=== PATIENT | female | born 1950 | race Caucasian/White ===

== ENCOUNTER 2020-06-27 11:35 | Outpatient (CLI) | payer MEDICARE, SELFPAY ==
--- NOTE | 2020-06-27 11:42 | MM_ITS ---
WS: [id number] BILATERAL DIGITAL SCREENING MAMMOGRAPHY WITH CAD CLINICAL INFORMATION: SCREENING HISTORY: Screening mammogram. No current complaints. COMPARISON: None. TECHNIQUE: Bilateral CC and MLO views. FINDINGS: Scattered fibroglandular densities bilaterally. No suspicious focal mass, asymmetry, calcifications, or architectural distortion. No evidence of malignancy. Incidental benign calcification right breast. A few clustered punctate calcifications left breast. MM/[id number] IMPRESSION: BI-RADS: 2-Benign FOLLOW UP: 1 Year Follow-up Recommend return to annual screening mammography.
== END 2020-06-27 11:36 | disposition home or self-care (01) ==
PROVIDERS: PCP Physician Assistant; Visit Provider Physician Assistant
DX: Z12.31 Encounter for screening mammogram for malignant neoplasm of breast (principal)
CPT/HCPCS: 77067

== ENCOUNTER 2021-03-13 09:48 | Observation (INO) | payer MEDICARE, SELFPAY ==
[2021-03-13] VITALS (20 sets, daily range): BP systolic 106–131; BP diastolic 84–96; PULSE 66–162; RESP 14–32; TEMP 37.3; O2SAT 89–95; BMI 22.6
--- NOTE | 2021-03-13 10:29 | ED_ITS ---
Documented by User: ARGELIA Samson 03/13/21 16:31 HPI - COVID General: Chief Complaint: ER Hold Stated Complaint: SOB Time Seen by Provider: 03/13/21 10:23 Triage information: Has fever, cough or shortness of breath . Exposure to COVID + person last 14 days History of Present Illness: HPI Narrative: Patient complains Covid-like symptoms increasing shortness of breath she said her sats have gone into the 70s and 80s and 90s at home. She has felt this way since yesterday. Recently quit smoking 2 months ago. Has had a loss of taste and smell and does have body aches. Denies headache sore throat or fever. MD complaint: reported COVID exposure and has COVID symptoms Prior covid testing: no COVID 19 common symptoms: positive dyspnea, body aches and loss of sense of smell and/or taste; negative headache(s), throat pain, nasal congestion, nausea or vomiting COVID 19 other sytmptoms: negative chest pain Severity: mild Pertinent comorbid conditions: COPD/respiratory disease Treatment prior to arrival: none COVID Results: SARS-CoV-2 Antigen (Rapid) Negative (Negative) 03/13/21 11:10 03/13/21 SARS-CoV-2 (PCR) Not detected (NOT DETECT) 03/13/21 18:56 03/13/21 Coronavirus Type 229E (PCR) Not detected (NOT DETECT) 03/13/21 18:56 03/13/21 Review of Systems Const: Reports: body aches Eyes: Denies: change in vision or blurry vision ENMT: Denies: throat pain or nasal congestion Card: Denies: chest pain or dyspnea on exertion Resp: Reports: dyspnea GI: Denies: abdominal pain, nausea or vomiting Musc: Denies: extremity pain Skin/Breast: Denies: rash Neuro: Denies: headache(s) Psych: Denies: anxiety or depression Ismael/Lymph: Denies: easy bruising PFS ED PFSH: Medical History (Updated 03/15/21 @ 00:01 by ) Atrial flutter (~03/13/21) Atrial flutter with rapid ventricular response Chronic kidney disease, stage II (mild) follows with Dr. Gavin,, diagnosed based on urinary protein COVID-19 vaccine administered 2 primary doses mrna vaccine + booster shot x 1 4 para 4 History of smoking quit ~02/09/2021 Hypertension Surgical History (Updated 03/13/21 @ 22:11 by Maureen Dee MD) History of appendectomy History of cataract surgery History of hysterectomy Family History (Updated 03/13/21 @ 22:12 by Maureen Dee MD) Brother Heart disease details unknown Social History (Updated 03/13/21 @ 22:14 by Maureen Dee MD) Smoking and tobacco status: former smoker Quit status (tobacco): has quit using tobacco Year quit tobacco: 02/09/2021 Former quit date comment: after several attempts Alcohol intake: current Alcohol intake frequency: few times a month Current occupational status: other Details: 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 Physical Exam Const: COMMON NORMALS: no acute distress, average body habitus and patient o riented x3 HENMT: COMMON NORMALS: normocephalic HEAD & SCALP: normal to inspection and normocephalic FACE & SINUS: normal facial exam Eye: COMMON NORMALS: conjunctivae normal GENERAL EYE: appearance normal, both eyes and all related structures CONJUNCTIVA: Yes conjunctivae normal Neck/C-Spine: COMMON NORMALS: no JVD Chest: COMMONS NORMALS: normal inspection of the chest Resp: COMMON NORMALS: normal respiratory effort and clear to auscultation bilaterally AUSCULTATION: clear to auscultation bilaterally Cardio: COMMON NORMALS: no JVD RATE: tachycardic GI: COMMON NORMALS: Normal to inspection, nondistended, normoactive bowel sounds present Extremity: COMMON NORMALS: normal to inspection and full ROM Neuro: COMMON NORMALS: patient oriented x3 Course Vital Signs: Vital signs: Vital Signs Temperature 99.2 F 03/13/21 10:18 Pulse Rate 72 03/14/21 13:31 Respiratory Rate 17 03/14/21 13:31 Blood Pressure 135/81 03/14/21 04:40 Pulse Oximetry 94 03/14/21 13:31 MDM - COVID MDM Narrative: Medical decision making narrative: Brief history and physical exam was performed as part of the triage process. Due to current ED wait time patient will be placed in waiting room until a room becomes available. Explained to patient he/she will be seen in order of severity. Patient is currently safe to wait in the waiting room until we can get them placed. Patient informed that if condition worsens at any time to please let the senior front end developer know. Lab Data: Labs: Lab Results 03/13/21 03/13/21 03/13/21 11:10 13:44 13:44 WBC 10.9 10^3/uL H 10 ^3/uL (4.0-10.0) RBC 4.06 10^6/uL L 10 ^6/uL (4.1-5.3) Hgb 12.6 g/dL g/dL (11.5-15.3) Hct 40.3 % % (37.0-47.0) MCV 99.3 fl H fl (81-99) MCH 31.0 pg pg (28.0-34.0) MCHC 31.3 g/dL g/dL (30.0-36.0) RDW 13.3 % % (12.1-15.1) Plt Count 271 10^3/cmm 10^3 /cmm (130-400) MPV 9.1 fL fL (7.4-10.4) Neut % (Auto) 71.4 % % Lymph % (Auto) 17.8 % % [place] % (Auto) 8.9 % % Eos % (Auto) 0.7 % % Baso % (Auto) 0.7 % % Neut # (Auto) 7.81 10^3/uL H 10 ^3/uL (1.8-7.7) Lymph # (Auto) 2.0 10^3/uL 10^3/ uL (0.8-4.8) [place] # (Auto) 1.0 10^3/uL H 10^ 3/uL (0.2-0.9) Eos # (Auto) 0.1 10^3/uL 10^3/ uL (0.0-0.8) Baso # (Auto) 0.1 10^3/uL 10^3/ uL (0.0-0.1) Nucleated RBC % (a uto) 0.2 % % Nucleated RBCs # 0.0 /100WBC /100W BC PT 13.70 SECONDS SEC ONDS (12.1-14.9) INR 1.02 (0.8-1.2) Fibrinogen D-Dimer 2.52 ug/mIFEU H u g/mIFEU (0-0.59) Sodium Potassium Chloride Carbon Dioxide Anion Gap BUN Creatinine GFR Calculation Glucose Calculated Osmolal ity Calcium Magnesium Ferritin Total Bilirubin AST ALT Alkaline Phosphata se Lactate Dehydrogen ase Creatine Kinase Troponin T Baselin e Troponin T 120 Min [place] Troponin T C-Reactive Protein Total Protein Albumin Globulin Procalcitonin Coronavirus 229E ( PCR) SARS-CoV-2 (PCR) SARS-CoV-2 Ag (Rap id) Negative (Negative) 03/13/21 03/13/21 03/13/21 13:44 13:44 13:44 WBC RBC Hgb Hct MCV MCH MCHC RDW Plt Count MPV Neut % (Auto) Lymph % (Auto) [place] % (Auto) Eos % (Auto) Baso % (Auto) Neut # (Auto) Lymph # (Auto) [place] # (Auto) Eos # (Auto) Baso # (Auto) Nucleated RBC % (a uto) Nucleated RBCs # PT INR Fibrinogen 472 mg/dL mg/dL (174-498) D-Dimer Sodium 138 mmol/L mmol/L (136-145) Potassium 4.4 mmol/L mmol/L (3.5-5.1) Chloride 101 mmol/L mmol/L (98-107) Carbon Dioxide 25 mmol/L mmol/L (22-29) Anion Gap 16.4 (5-19) BUN 10 mg/dL mg/dL (8-23) Creatinine 0.6 mg/dL mg/dL (0.5-0.9) GFR Calculation 99.4 mL/min mL/mi n (90-130) Glucose 98 mg/dL mg/dL (65-115) Calculated Osmolal ity 285 mOsm/kg mOsm/ kg (285-295) Calcium 8.5 mg/dL mg/dL (8.5-10.5) Magnesium Ferritin Total Bilirubin 0.4 mg/dL mg/dL (0.15-1.2) AST 45 U/L H U/L (0-32) ALT 137 U/L H U/L (0-33) Alkaline Phosphata se 65 IU/L IU/L (35-105) Lactate Dehydrogen ase Creatine Kinase Troponin T Baselin e 17 ng/L H ng/L (0-10) Troponin T 120 Min [place] Troponin T C-Reactive Protein Total Protein 6.9 g/dL g/dL (6.6-8.7) Albumin 4.1 g/dL g/dL (3.5-5.2) Globulin 2.8 g/dL g/dL (1.3-4.6) Procalcitonin Coronavirus 229E ( PCR) SARS-CoV-2 (PCR) SARS-CoV-2 Ag (Rap id) 03/13/21 03/13/21 03/13/21 13:44 15:27 18:56 WBC RBC Hgb Hct MCV MCH MCHC RDW Plt Count MPV Neut % (Auto) Lymph % (Auto) [place] % (Auto) Eos % (Auto) Baso % (Auto) Neut # (Auto) Lymph # (Auto) [place] # (Auto) Eos # (Auto) Baso # (Auto) Nucleated RBC % (a uto) Nucleated RBCs # PT INR Fibrinogen D-Dimer Sodium Potassium Chloride Carbon Dioxide Anion Gap BUN Creatinine GFR Calculation Glucose Calculated Osmolal ity Calcium Magnesium 2.0 mg/dL mg/dL (1.7-2.3) Ferritin 304 ng/mL H ng/mL (15-150) Total Bilirubin AST ALT Alkaline Phosphata se Lactate Dehydrogen ase 234 U/L H U/L (135-214) Creatine Kinase 85 U/L U/L (26-192) Troponin T Baselin e Troponin T 120 Min [place] 16.77 ng/L H ng/L (0-10) Delta Troponin T -0.23 ABS# L ABS# (0-10) C-Reactive Protein 57.3 mg/L H mg/L (0.0-4.9) Total Protein Albumin Globulin Procalcitonin 0.07 ng/mL ng/mL (0-0.5) Coronavirus 229E ( PCR) Not detected (NOT DETECT) SARS-CoV-2 (PCR) Not detected (NOT DETECT) SARS-CoV-2 Ag (Rap id) COVID Results: SARS-CoV-2 Antigen (Rapid) Negative (Negative) 03/13/21 11:10 03/13/21 SARS-CoV-2 (PCR) Not detected (NOT DETECT) 03/13/21 18:56 03/13/21 Coronavirus Type 229E (PCR) Not detected (NOT DETECT) 03/13/21 18:56 03/13/21 Discharge Plan Discharge Patient Disposition: Placed in Observation Admit Provider: Maureen Dee Clinical Impression: New onset a-fib, Atrial fibrillation with rapid ventricular response Discharge Diet: Cardiac Discharge Activity: Increase activity as tolerated and Limit activity as instructed Sign Out Sign Out Data: Patient Sign Out occurred on 03/13/21 at 19:23. Patient's care was discussed, and care was transferred from to Isiah Toro MD. Post-Handoff Eval: Patient care handoff from Miguel Malagon NP. I personally saw the patient. I reviewed performed guerin portions of E/M. I reperformed HPI, ROS, physical exam. 10 point review of systems was negative except for as noted in HPI/previous performed ROS. GENERAL/CONSTITUTIONAL - well appearing. Patient is nontoxic in appearance. she does become mildly distressed with exertion as manifested by increased work of breathing. Comfortable at rest. Eyes - PERRL, no conjunctival injection ENMT - Atraumatic external nose and ears. Moist mucous membranes NECK - supple. trachea midline CARDIOVASCULAR -tachycardic rate and irregular rhythm. Normal peripheral perfusion RESPIRATORY -clear to auscultation bilaterally. Mild tachypnea ABDOMEN/GI - Nontender, Nondistended. MSK - Extremities without obvious deformity or tenderness to palpation SKIN - Warm, Dry NEURO - alert and appropriately oriented. Moves all extremities equally. Patient has two 1 week history of breathlessness though more definitively likely A. fib greater than 48 hours in duration given palpitations. Given this, and uncertain nature of onset without history of similar and no use of anticoagulation patient requires further inpatient management. For rate control I ordered Cardizem and Cardizem drip. Hospitalist service contacted and agreed to admit the patient. Coding Level of Care Code ED Maintenance Foreman for Chg Fwd Exam Comprehensive Documented by User: LIOR Do 03/13/21 21:50 HPI - COVID General: Chief Complaint: ER Hold Stated Complaint: SOB Time Seen by Provider: 03/13/21 10:23 History of Present Illness: HPI Narrative: Patient says she has been having shortness of breath now that started approximately 3 days ago and is continued. She reports feeling palpitations that started after she did some exercise. She says whenever she gets up and moves around her house she feels short of breath. COVID 19 other sytmptoms: negative chest pain COVID Results: SARS-CoV-2 Antigen (Rapid) Negative (Negative) 03/13/21 11:10 03/13/21 SARS-CoV-2 (PCR) Not detected (NOT DETECT) 03/13/21 18:56 03/13/21 Coronavirus Type 229E (PCR) Not detected (NOT DETECT) 03/13/21 18:56 03/13/21 Review of Systems Card: Reports: palpitations; Denies: chest pain [facility] ED PFSH: Medical History (Updated 03/15/21 @ 00:01 by ) Atrial flutter (~03/13/21) Atrial flutter with rapid ventricular response Chronic kidney disease, stage II (mild) follows with Dr. Gavin,, diagnosed based on urinary protein COVID-19 vaccine administered 2 primary doses mrna vaccine + booster shot x 1 4 para 4 History of smoking quit ~02/09/2021 Hypertension Surgical History (Updated 03/13/21 @ 22:11 by Maureen Dee MD) History of appendectomy History of cataract surgery History of hysterectomy Family History (Updated 03/13/21 @ 22:12 by Maureen Dee MD) Brother Heart disease details unknown Social History (Updated 03/13/21 @ 22:14 by Maureen Dee MD) Smoking and tobacco status: former smoker Quit status (tobacco): has quit using tobacco Year quit tobacco: 02/09/2021 Former quit date comment: after several attempts Alcohol intake: current Alcohol intake frequency: few times a month Current occupational status: other Details: 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 Patient has no medical history of any cardiac arrhythmias. Patient says symptoms started over the weekend. Denies any fever, chills or cough. She says shortness of breath worsens with exertion. Denies any chest pain. Vitals show tachycardia 120 bpm and respirations of 24. The rest of vitals are stable. Patient tachy with heart rate of around 130-140 while I was in the room. The rest of exam was unremarkable. CBC and CMP were unremarkable. Troponins negative. EKG showed atrial flutter with RVR. D-dimer elevated at 2.5. Covid negative. Chest x-ray showed no acute findings. CTA of chest showed no PEs but did note some small right lobe pneumonia. Spoke with Dr. Tillman about patient case and her new onset of atrial flutter. Dr. Toro took over patient case and had patient admitted to the hospital. Lab Data: Attestation: I reviewed the patient's lab results. Labs: Lab Results 03/13/21 03/13/21 03/13/21 11:10 13:44 13:44 WBC 10.9 10^3/uL H 10 ^3/uL (4.0-10.0) RBC 4.06 10^6/uL L 10 ^6/uL (4.1-5.3) Hgb 12.6 g/dL g/dL (11.5-15.3) Hct 40.3 % % (37.0-47.0) MCV 99.3 fl H fl (81-99) MCH 31.0 pg pg (28.0-34.0) MCHC 31.3 g/dL g/dL (30.0-36.0) RDW 13.3 % % (12.1-15.1) Plt Count 271 10^3/cmm 10^3 /cmm (130-400) MPV 9.1 fL fL (7.4-10.4) Neut % (Auto) 71.4 % % Lymph % (Auto) 17.8 % % [place] % (Auto) 8.9 % % Eos % (Auto) 0.7 % % Baso % (Auto) 0.7 % % Neut # (Auto) 7.81 10^3/uL H 10 ^3/uL (1.8-7.7) Lymph # (Auto) 2.0 10^3/uL 10^3/ uL (0.8-4.8) [place] # (Auto) 1.0 10^3/uL H 10^ 3/uL (0.2-0.9) Eos # (Auto) 0.1 10^3/uL 10^3/ uL (0.0-0.8) Baso # (Auto) 0.1 10^3/uL 10^3/ uL (0.0-0.1) Nucleated RBC % (a uto) 0.2 % % Nucleated RBCs # 0.0 /100WBC /100W BC PT 13.70 SECONDS SEC ONDS (12.1-14.9) INR 1.02 (0.8-1.2) Fibrinogen D-Dimer 2.52 ug/mIFEU H u g/mIFEU (0-0.59) Sodium Potassium Chloride Carbon Dioxide Anion Gap BUN Creatinine GFR Calculation Glucose Calculated Osmolal ity Calcium Magnesium Ferritin Total Bilirubin AST ALT Alkaline Phosphata se Lactate Dehydrogen ase Creatine Kinase Troponin T Baselin e Troponin T 120 Min [place] Troponin T C-Reactive Protein Total Protein Albumin Globulin Procalcitonin Coronavirus 229E ( PCR) SARS-CoV-2 (PCR) SARS-CoV-2 Ag (Rap id) Negative (Negative) 03/13/21 03/13/21 03/13/21 13:44 13:44 13:44 WBC RBC Hgb Hct MCV MCH MCHC RDW Plt Count MPV Neut % (Auto) Lymph % (Auto) [place] % (Auto) Eos % (Auto) Baso % (Auto) Neut # (Auto) Lymph # (Auto) [place] # (Auto) Eos # (Auto) Baso # (Auto) Nucleated RBC % (a uto) Nucleated RBCs # PT INR Fibrinogen 472 mg/dL mg/dL (174-498) D-Dimer Sodium 138 mmol/L mmol/L (136-145) Potassium 4.4 mmol/L mmol/L (3.5-5.1) Chloride 101 mmol/L mmol/L (98-107) Carbon Dioxide 25 mmol/L mmol/L (22-29) Anion Gap 16.4 (5-19) BUN 10 mg/dL mg/dL (8-23) Creatinine 0.6 mg/dL mg/dL (0.5-0.9) GFR Calculation 99.4 mL/min mL/mi n (90-130) Glucose 98 mg/dL mg/dL (65-115) Calculated Osmolal ity 285 mOsm/kg mOsm/ kg (285-295) Calcium 8.5 mg/dL mg/dL (8.5-10.5) Magnesium Ferritin Total Bilirubin 0.4 mg/dL mg/dL (0.15-1.2) AST 45 U/L H U/L (0-32) ALT 137 U/L H U/L (0-33) Alkaline Phosphata se 65 IU/L IU/L (35-105) Lactate Dehydrogen ase Creatine Kinase Troponin T Baselin e 17 ng/L H ng/L (0-10) Troponin T 120 Min [place] Troponin T C-Reactive Protein Total Protein 6.9 g/dL g/dL (6.6-8.7) Albumin 4.1 g/dL g/dL (3.5-5.2) Globulin 2.8 g/dL g/dL (1.3-4.6) Procalcitonin Coronavirus 229E ( PCR) SARS-CoV-2 (PCR) SARS-CoV-2 Ag (Rap id) 03/13/21 03/13/21 03/13/21 13:44 15:27 18:56 WBC RBC Hgb Hct MCV MCH MCHC RDW Plt Count MPV Neut % (Auto) Lymph % (Auto) [place] % (Auto) Eos % (Auto) Baso % (Auto) Neut # (Auto) Lymph # (Auto) [place] # (Auto) Eos # (Auto) Baso # (Auto) Nucleated RBC % (a uto) Nucleated RBCs # PT INR Fibrinogen D-Dimer Sodium Potassium Chloride Carbon Dioxide Anion Gap BUN Creatinine GFR Calculation Glucose Calculated Osmolal ity Calcium Magnesium 2.0 mg/dL mg/dL (1.7-2.3) Ferritin 304 ng/mL H ng/mL (15-150) Total Bilirubin AST ALT Alkaline Phosphata se Lactate Dehydrogen ase 234 U/L H U/L (135-214) Creatine Kinase 85 U/L U/L (26-192) Troponin T Baselin e Troponin T 120 Min [place] 16.77 ng/L H ng/L (0-10) Delta Troponin T -0.23 ABS# L ABS# (0-10) C-Reactive Protein 57.3 mg/L H mg/L (0.0-4.9) Total Protein Albumin Globulin Procalcitonin 0.07 ng/mL ng/mL (0-0.5) Coronavirus 229E ( PCR) Not detected (NOT DETECT) SARS-CoV-2 (PCR) Not detected (NOT DETECT) SARS-CoV-2 Ag (Rap id) Imaging Data: CXR: Attestation: I personally reviewed and interpreted this imaging study as follows: Radiologist's impression: [employer] [facility].[place], [place] [address]JBkv ReportSigned Patient: Stephon Bermeo #: [id number]: 1950cct#:[id number]/Sex: 70 / FADM Date: 03/13/21Loc: ERRo om/Bed:Attending Dr: Ordering Provider/Ordering MD: Ben Malagon , [facility] Date of Service: 03/13/21 Procedure(s): XR chest 1V portable [id number] Accession Number(s): [id number] Report Number: [id number] PROCEDURE INFORMATION: Exam: XR Chest Exam date and time: 03/13/2021 10:29 AM Age: 70 years old Clinical indication: Shortness of breath; Additional info: SOB TECHNIQUE: Imaging protocol: XR of the chest. Views: 1 view. COMPARISON: No relevant prior studies available. FINDINGS: Lungs: Unremarkable. No consolidation. Pleural spaces: Unremarkable. No pleural effusion. No pneumothorax. Heart/Mediastinum: Unremarkable. No cardiomegaly. Bones/joints: Degenerative changes of the spine seen. XR/XR chest 1V portable [id number] IMPRESSION: No evidence of active cardiopulmonary disease. Dictated By:Benoit Miles By:Benoit Miles Date/Time:03/13/21 1154DD/ 1029 CTA Chest: Attestation: I personally reviewed and interpreted this imaging study as follows: Radiologist's impression: [place] [address]ML Scan ReportSigned Patient: Stephon Bermeo #: [id number]: 1950cct#:[id number]/Sex: 70 / FADM Date: 03/13/21Loc: ERRoom/Bed:Attending Dr: Ordering Provider/Ordering MD: Ben Malagon Sr, [facility]- Date of Service: 03/13/21 Procedure(s): CT angio chest PE protcl [id number] Accession Number(s): [id number] Report Number: [id number] PROCEDURE INFORMATION: Exam: CTA Chest With Contrast Exam date and time: 03/13/2021 2:12 PM Age: 70 years old Clinical indication: Abnormal findings; Abnormal diagnostic tests; Elevated d-dimer; Shortness of breath; Additional info: SOB, elevated dimer TECHNIQUE: Imaging protocol: Computed tomographic angiography of the chest with contrast. 3D rendering (Not supervised by radiologist): MIP and/or 3D reconstructed images were created by the technologist. Radiation optimization: All CT scans at this facility use at least one of these dose optimization techniques: automated exposure control; mA and/or kV adjustment per patient size (includes targeted exams where dose is matched to clinical indication); or iterative reconstruction. Contrast material: OMNI 350; Contrast volume: 72 ml; Contrast route: INTRAVENOUS (IV); COMPARISON: CR XR chest 1V portable [id number] 03/13/2021 11:37 AM RADIATION DOSE METRICS: Total DLP (mGy-cm): 550.24 FINDINGS: Pulmonary arteries: Overall exam quality is good for evaluating the pulmonary arteries. There are no intraluminal filling defects to indicate pulmonary embolism. Aorta: Unremarkable. No aortic aneurysm. No aortic dissection. Lungs: Mild centrilobular emphysema occurs in the upper and lower lobes. Pleural spaces: There is a small right pleural effusion along with basilar atelectasis or infiltration. Heart: There are scattered calcified plaques in the coronary arteries. Lymph nodes: Central mediastinal nodes measure no more than 1 cm. Liver: The liver is fatty and enlarged. Bones/joints: There are multifocal degenerative changes in the lower thoracic and upper lumbar spine as well as a scoliosis. Soft tissues: Unremarkable. CT/CT angio chest PE protcl [id number] IMPRESSION: 1. No pulmonary embolism. 2. Small right pleural effusion with basilar infiltrate suggesting pneumonia 3. Mild emphysema. Dictated By:Ree Mulliganigned By:Ree Mulligan V RADHAigned Date/Time:03/13/21 1724DD/ 1412 COVID Results: SARS-CoV-2 Antigen (Rapid) Negative (Negative) 03/13/21 11:10 03/13/21 SARS-CoV-2 (PCR) Not detected (NOT DETECT) 03/13/21 18:56 03/13/21 Coronavirus Type 229E (PCR) Not detected (NOT DETECT) 03/13/21 18:56 03/13/21 Discharge Plan Discharge Patient Disposition: Placed in Observation Admit Provider: Maureen Dee Clinical Impression: New onset a-fib, Atrial fibrillation with rapid ventricular response Discharge Diet: Cardiac Discharge Activity: Increase activity as tolerated and Limit activity as instructed Sign Out Sign Out Data: Patient Sign Out occurred on 03/13/21 at 19:23. Patient's care was discussed, and care was transferred from to Isiah Toro MD. Post-Handoff Eval: Patient care handoff from Miguel Malagon NP. I personally saw the patient. I reviewed performed guerin portions of E/M. I reperformed HPI, ROS, physical exam. 10 point review of systems was negative except for as noted in HPI/previous performed ROS. GENERAL/CONSTITUTIONAL - well appearing. Patient is nontoxic in appearance. she does become mildly distressed with exertion as manifested by increased work of breathing. Comfortable at rest. Eyes - PERRL, no conjunctival injection ENMT - Atraumatic external nose and ears. Moist mucous membranes NECK - supple. trachea midline CARDIOVASCULAR -tachycardic rate and irregular rhythm. Normal peripheral perfusion RESPIRATORY -clear to auscultation bilaterally. Mild tachypnea ABDOMEN/GI - Nontender, Nondistended. MSK - Extremities without obvious deformity or tenderness to palpation SKIN - Warm, Dry NEURO - alert and appropriately oriented. Moves all extremities equally. Patient has two 1 week history of breathlessness though more definitively likely A. fib greater than 48 hours in duration given palpitations. Given this, and uncertain nature of onset without history of similar and no use of anticoagulation patient requires further inpatient management. For rate control I ordered Cardizem and Cardizem drip. Hospitalist service contacted and agreed to admit the patient. Coding Level of Care Code ED Maintenance Foreman for Chg Fwd Exam Comprehensive Documented by User: Isiah Toro MD 03/16/21 21:20 HPI - COVID General: Chief Complaint: ER Hold Stated Complaint: SOB Time Seen by Provider: 03/13/21 10:23 COVID Results: SARS-CoV-2 Antigen (Rapid) Negative (Negative) 03/13/21 11:10 03/13/21 SARS-CoV-2 (PCR) Not detected (NOT DETECT) 03/13/21 18:56 03/13/21 Coronavirus Type 229E (PCR) Not detected (NOT DETECT) 03/13/21 18:56 03/13/21 PFS ED PFSH: Medical History (Updated 03/15/21 @ 00:01 by ) Atrial flutter (~03/13/21) Atrial flutter with rapid ventricular response Chronic kidney disease, stage II (mild) follows with Dr. Gavin,, diagnosed based on urinary protein COVID-19 vaccine administered 2 primary doses mrna vaccine + booster shot x 1 4 para 4 History of smoking quit ~02/09/2021 Hypertension Surgical History (Updated 03/13/21 @ 22:11 by Maureen Dee MD) History of appendectomy History of cataract surgery History of hysterectomy Family History (Updated 03/13/21 @ 22:12 by Maureen Dee MD) Brother Heart disease details unknown Social History (Updated 03/13/21 @ 22:14 by Maureen Dee MD) Smoking and tobacco status: former smoker Quit status (tobacco): has quit using tobacco Year quit tobacco: 02/09/2021 Former quit date comment: after several attempts Alcohol intake: current Alcohol intake frequency: few times a month Current occupational status: other Details: 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 Course Vital Signs: Vital signs: Vital Signs Temperature 99.2 F 01/03/22 10:18 Pulse Rate 72 03/14/21 13:31 Respiratory Rate 17 03/14/21 13:31 Blood Pressure 135/81 03/14/21 04:40 Pulse Oximetry 94 03/14/21 13:31 MDM - COVID Lab Data: Labs: Lab Results 03/13/21 03/13/21 03/13/21 11:10 13:44 13:44 WBC 10.9 10^3/uL H 10 ^3/uL (4.0-10.0) RBC 4.06 10^6/uL L 10 ^6/uL (4.1-5.3) Hgb 12.6 g/dL g/dL (11.5-15.3) Hct 40.3 % % (37.0-47.0) MCV 99.3 fl H fl (81-99) MCH 31.0 pg pg (28.0-34.0) MCHC 31.3 g/dL g/dL (30.0-36.0) RDW 13.3 % % (12.1-15.1) Plt Count 271 10^3/cmm 10^3 /cmm (130-400) MPV 9.1 fL fL (7.4-10.4) Neut % (Auto) 71.4 % % Lymph % (Auto) 17.8 % % [place] % (Auto) 8.9 % % Eos % (Auto) 0.7 % % Baso % (Auto) 0.7 % % Neut # (Auto) 7.81 10^3/uL H 10 ^3/uL (1.8-7.7) Lymph # (Auto) 2.0 10^3/uL 10^3/ uL (0.8-4.8) [place] # (Auto) 1.0 10^3/uL H 10^ 3/uL (0.2-0.9) Eos # (Auto) 0.1 10^3/uL 10^3/ uL (0.0-0.8) Baso # (Auto) 0.1 10^3/uL 10^3/ uL (0.0-0.1) Nucleated RBC % (a uto) 0.2 % % Nucleated RBCs # 0.0 /100WBC /100W BC PT 13.70 SECONDS SEC ONDS (12.1-14.9) INR 1.02 (0.8-1.2) Fibrinogen D-Dimer 2.52 ug/mIFEU H u g/mIFEU (0-0.59) Sodium Potassium Chloride Carbon Dioxide Anion Gap BUN Creatinine GFR Calculation Glucose Calculated Osmolal ity Calcium Magnesium Ferritin Total Bilirubin AST ALT Alkaline Phosphata se Lactate Dehydrogen ase Creatine Kinase Troponin T Baselin e Troponin T 120 Min [place] Troponin T C-Reactive Protein Total Protein Albumin Globulin Procalcitonin Coronavirus 229E ( PCR) SARS-CoV-2 (PCR) SARS-CoV-2 Ag (Rap id) Negative (Negative) 03/13/21 03/13/21 03/13/21 13:44 13:44 13:44 WBC RBC Hgb Hct MCV MCH MCHC RDW Plt Count MPV Neut % (Auto) Lymph % (Auto) [place] % (Auto) Eos % (Auto) Baso % (Auto) Neut # (Auto) Lymph # (Auto) [place] # (Auto) Eos # (Auto) Baso # (Auto) Nucleated RBC % (a uto) Nucleated RBCs # PT INR Fibrinogen 472 mg/dL mg/dL (174-498) D-Dimer Sodium 138 mmol/L mmol/L (136-145) Potassium 4.4 mmol/L mmol/L (3.5-5.1) Chloride 101 mmol/L mmol/L (98-107) Carbon Dioxide 25 mmol/L mmol/L (22-29) Anion Gap 16.4 (5-19) BUN 10 mg/dL mg/dL (8-23) Creatinine 0.6 mg/dL mg/dL (0.5-0.9) GFR Calculation 99.4 mL/min mL/mi n (90-130) Glucose 98 mg/dL mg/dL (65-115) Calculated Osmolal ity 285 mOsm/kg mOsm/ kg (285-295) Calcium 8.5 mg/dL mg/dL (8.5-10.5) Magnesium Ferritin Total Bilirubin 0.4 mg/dL mg/dL (0.15-1.2) AST 45 U/L H U/L (0-32) ALT 137 U/L H U/L (0-33) Alkaline Phosphata se 65 IU/L IU/L (35-105) Lactate Dehydrogen ase Creatine Kinase Troponin T Baselin e 17 ng/L H ng/L (0-10) Troponin T 120 Min [place] Troponin T C-Reactive Protein Total Protein 6.9 g/dL g/dL (6.6-8.7) Albumin 4.1 g/dL g/dL (3.5-5.2) Globulin 2.8 g/dL g/dL (1.3-4.6) Procalcitonin Coronavirus 229E ( PCR) SARS-CoV-2 (PCR) SARS-CoV-2 Ag (Rap id) 03/13/21 03/13/21 03/13/21 13:44 15:27 18:56 WBC RBC Hgb Hct MCV MCH MCHC RDW Plt Count MPV Neut % (Auto) Lymph % (Auto) [place] % (Auto) Eos % (Auto) Baso % (Auto) Neut # (Auto) Lymph # (Auto) [place] # (Auto) Eos # (Auto) Baso # (Auto) Nucleated RBC % (a uto) Nucleated RBCs # PT INR Fibrinogen D-Dimer Sodium Potassium Chloride Carbon Dioxide Anion Gap BUN Creatinine GFR Calculation Glucose Calculated Osmolal ity Calcium Magnesium 2.0 mg/dL mg/dL (1.7-2.3) Ferritin 304 ng/mL H ng/mL (15-150) Total Bilirubin AST ALT Alkaline Phosphata se Lactate Dehydrogen ase 234 U/L H U/L (135-214) Creatine Kinase 85 U/L U/L (26-192) Troponin T Baselin e Troponin T 120 Min [place] 16.77 ng/L H ng/L (0-10) Delta Troponin T -0.23 ABS# L ABS# (0-10) C-Reactive Protein 57.3 mg/L H mg/L (0.0-4.9) Total Protein Albumin Globulin Procalcitonin 0.07 ng/mL ng/mL (0-0.5) Coronavirus 229E ( PCR) Not detected (NOT DETECT) SARS-CoV-2 (PCR) Not detected (NOT DETECT) SARS-CoV-2 Ag (Rap id) COVID Results: SARS-CoV-2 Antigen (Rapid) Negative (Negative) 03/13/21 11:10 03/13/21 SARS-CoV-2 (PCR) Not detected (NOT DETECT) 03/13/21 18:56 03/13/21 Coronavirus Type 229E (PCR) Not detected (NOT DETECT) 03/13/21 18:56 03/13/21 Discharge Plan Discharge Patient Disposition: Placed in Observation Admit Provider: Maureen Dee Clinical Impression: New onset a-fib, Atrial fibrillation with rapid ventricular response Discharge Diet: Cardiac Discharge Activity: Increase activity as tolerated and Limit activity as instructed Sign Out Sign Out Data: Patient Sign Out occurred on 03/13/21 at 19:23. Patient's care was discussed, and care was transferred from to Isiah Toro MD. Post-Handoff Eval: Patient care handoff from Miguel Malagon NP. I personally saw the patient. I reviewed performed guerin portions of E/M. I reperformed HPI, ROS, physical exam. 10 point review of systems was negative except for as noted in HPI/previous performed ROS. GENERAL/CONSTITUTIONAL - well appearing. Patient is nontoxic in appearance. she does become mildly distressed with exertion as manifested by increased work of breathing. Comfortable at rest. Eyes - PERRL, no conjunctival injection ENMT - Atraumatic external nose and ears. Moist mucous membranes NECK - supple. trachea midline CARDIOVASCULAR -tachycardic rate and irregular rhythm. Normal peripheral perfusion RESPIRATORY -clear to auscultation bilaterally. Mild tachypnea ABDOMEN/GI - Nontender, Nondistended. MSK - Extremities without obvious deformity or tenderness to palpation SKIN - Warm, Dry NEURO - alert and appropriately oriented. Moves all extremities equally. Patient has two 1 week history of breathlessness though more definitively likely A. fib greater than 48 hours in duration given palpitations. Given this, and uncertain nature of onset without history of similar and no use of anticoagulation patient requires further inpatient management. For rate control I ordered Cardizem and Cardizem drip. Hospitalist service contacted and agreed to admit the patient. Coding Level of Care Code ED Maintenance Foreman for Chg Fwd Exam Comprehensive
[2021-03-13 12:21] LABS: SARS Covid-2 Antigen Negative (Negative)
[2021-03-13 13:55] LABS: Basophils # 0.1 10^3/uL (0.0-0.1); Basophils % 0.7 %; Eosinophils # 0.1 10^3/uL (0.0-0.8); Eosinophils % 0.7 %; Hematocrit 40.3 % (37.0-47.0); Hemoglobin 12.6 g/dL (11.5-15.3); Lymphocytes % 17.8 %; Mean Corpuscular HGB Conc 31.3 g/dL (30.0-36.0); Mean Corpuscular Volume 99.3 fl (81-99); Mean Platelet Volume 9.1 fL (7.4-10.4); Monocytes % 8.9 %; Neutrophils # 7.81 10^3/uL (1.8-7.7); Neutrophils % 71.4 %; Nucleated Red Blood Cells % 0.2 %; Platelet Count 271 10^3/cmm (130-400); Red Blood Count 4.06 10^6/uL (4.1-5.3); Red Cell Distribution Width 13.3 % (12.1-15.1); White Blood Count 10.9 10^3/uL (4.0-10.0)
[2021-03-13 14:06] LABS: INR 1.02 (0.8-1.2)
[2021-03-13 14:10] LABS: D Dimer 2.52 ug/mIFEU (0-0.59)
--- NOTE | 2021-03-13 14:12 | CTR_ITS ---
PROCEDURE INFORMATION: Exam: CTA Chest With Contrast Exam date and time: 03/13/2021 2:12 PM Age: 70 years old Clinical indication: Abnormal findings; Abnormal diagnostic tests; Elevated d-dimer; Shortness of breath; Additional info: SOB, elevated dimer TECHNIQUE: Imaging protocol: Computed tomographic angiography of the chest with contrast. 3D rendering (Not supervised by radiologist): MIP and/or 3D reconstructed images were created by the technologist. Radiation optimization: All CT scans at this facility use at least one of these dose optimization techniques: automated exposure control; mA and/or kV adjustment per patient size (includes targeted exams where dose is matched to clinical indication); or iterative reconstruction. Contrast material: OMNI 350; Contrast volume: 72 ml; Contrast route: INTRAVENOUS (IV); COMPARISON: CR XR chest 1V portable [id number] 03/13/2021 11:37 AM RADIATION DOSE METRICS: Total DLP (mGy-cm): 550.24 FINDINGS: Pulmonary arteries: Overall exam quality is good for evaluating the pulmonary arteries. There are no intraluminal filling defects to indicate pulmonary embolism. Aorta: Unremarkable. No aortic aneurysm. No aortic dissection. Lungs: Mild centrilobular emphysema occurs in the upper and lower lobes. Pleural spaces: There is a small right pleural effusion along with basilar atelectasis or infiltration. Heart: There are scattered calcified plaques in the coronary arteries. Lymph nodes: Central mediastinal nodes measure no more than 1 cm. Liver: The liver is fatty and enlarged. Bones/joints: There are multifocal degenerative changes in the lower thoracic and upper lumbar spine as well as a scoliosis. Soft tissues: Unremarkable. CT/CT angio chest PE protcl [id number] IMPRESSION: 1. No pulmonary embolism. 2. Small right pleural effusion with basilar infiltrate suggesting pneumonia 3. Mild emphysema.
[2021-03-13 14:15] LABS: Alanine Aminotransferase 137 U/L (0-33); Albumin Level 4.1 g/dL (3.5-5.2); Alkaline Phosphatase 65 IU/L (35-105); Anion Gap 16.4 (5-19); Aspartate Amino Transferase 45 U/L (0-32); Blood Urea Nitrogen 10 mg/dL (8-23); Calcium 8.5 mg/dL (8.5-10.5); Carbon Dioxide 25 mmol/L (22-29); Chloride 101 mmol/L (98-107); Globulin 2.8 g/dL (1.3-4.6); Glomerular Filtration Rate 99.4 mL/min (90-130); Glucose 98 mg/dL (65-115); Osmolality Calculated 285 mOsm/kg (285-295); Potassium 4.4 mmol/L (3.5-5.1); Sodium 138 mmol/L (136-145); Total Bilirubin 0.4 mg/dL (0.15-1.2); Total Protein 6.9 g/dL (6.6-8.7)
[2021-03-13 14:36] LABS: Troponin(5th) Baseline 17 ng/L (0-10)
[2021-03-13 15:53] LABS: Troponin 5 2HR 16.77 ng/L (0-10)
[2021-03-13 15:55] LABS: Troponin 5 2HR Delta -0.23 ABS# (0-10)
--- NOTE | 2021-03-13 16:07 | ECG_ITS ---
[facility] Test Date: 2021-03-13 Pat Name: Isela Bermeo Department: Room: Gender: Female Md Do Resident Urgent Care: : 1950 Requested By: Miguel Malagon Order Number: [id number] Igor MD: Paola Jeter M.D. Measurements Intervals [place] Rate: 124 P: [place]: QRS: -2 QRSD: 84 T: 40 QT: 297 QTc: 427 Interpretive Statements ATRIAL FLUTTER/TACHYCARDIA WITH RAPID VENTRICULAR RESPONSE LOW QRS VOLTAGE IN EXTREMITY LEADS [QRS DEFLECTION < 0.5 mV IN LIMB LEADS] SEPTAL MYOCARDIAL INFARCTION , PROBABLY OLD [40+ ms Q WAVE IN V1/V2] No previous ECG available for comparison Electronically Signed On 03-13-2021 20:54:21 AIR CONDITIONING ENGINEER by Paola Jeter M.D. [id number]
[2021-03-13] MEDS: iohexol 350 mg/mL 100 mL Btl IV (17:13)
[2021-03-13] MEDS: enoxaparin 80 mg/0.8 mL Syringe 55 MG SUBCUT (19:38)
[2021-03-13] MEDS: acetaminophen 325 mg Tablet 650 MG PO (19:38)
[2021-03-13 20:43] LABS: Adenovirus Not Detected (NOT DETECT); Chlamydia Pneumoniae Not Detected (NOT DETECT); Coronavirus 229E,HKU1,NL63,OC4 Not Detected (NOT DETECT); Human Metapneumovirus Not Detected (NOT DETECT); Human Rhinovirus/Enterovirus Not Detected (NOT DETECT); Influenza A Not Detected (NOT DETECT); Influenza A H1 Not Detected (NOT DETECT); Influenza A H1-2009 Not Detected (NOT DETECT); Influenza A H3 Not Detected (NOT DETECT); Influenza B Not Detected (NOT DETECT); Mycoplasma Pneumoniae Not Detected (NOT DETECT); Parainfluenza Virus Type 1 Not Detected (NOT DETECT); Parainfluenza Virus Type 2 Not Detected (NOT DETECT); Parainfluenza Virus Type 3 Not Detected (NOT DETECT); Parainfluenza Virus Type 4 Not Detected (NOT DETECT); Respiratory Syncytial Virus A Not Detected (NOT DETECT); Respiratory Syncytial Virus B Not Detected (NOT DETECT); SARS-COV-2 Not Detected (NOT DETECT)
[2021-03-13 20:57] LABS: Fibrinogen 472 mg/dL (174-498)
--- NOTE | 2021-03-13 21:10 | P.HP_ITS ---
Providers/Chief Complaint Admitting Physician: Maureen Dee MD Primary Care Provider: Fatou Fitzgerald Chief Complaint: SOB History of Present Illness Isela Bermeo is a 70 year old female who presented to the emergency room with chief complaint of difficulty breathing. She first noticed the symptoms approximately 1 week ago. She quit smoking in early February after several m onths of trying. She has been working on cleaning her and meeting with an size head animal trainer to help with the weight gain from smoking cessation. She has been going to classes for several weeks and initially seemed to be doing okay with this. Last Saturday she describes having a hard workout that took a bit for her to recover from. On Saturday the workout was even worse. She describes gasping for air, not being able to get in a breath even after resting for a few minutes, palpitations and a general discomfort in her chest during these episodes. She has not been to an exercise class since that time. She eventually felt better and on Saturday, for the holidays, she took her [id number], for whom she cares, to [place] and they came back on Saturday. During this timeframe and through the weekend she started noticing that she was getting very short of breath with less and less exertion and having to rest when she previously did not have to rest during similar activities. This included having to rest after picking things up, walking across the parking lot progressing to shorter distances and such. Today she took a shower and was so short of breath afterwards that she had to lie down. She was struggling to even finish taking the shower because of dyspnea and palpitations. She describes a bloating sensation day did not really have chest tightness like she had previously. Because of how much worse her symptoms have become she came into the emergency room. On arrival heart rate was in the 160s. Decreased to 120s without direct intervention. EKG showed atrial flutter. She has no prior history of atrial fibrillation or flutter. She received some IV Cardizem and was started on a Cardizem drip with improvement in heart rate to the 90s to low 100s. Her blood pressure remained stable. She has not required any oxygen. Given the severity of her symptoms and new onset of atrial flutter, she is being admitted for further evaluation and treatment. She has no personal history of coronary artery disease. She has been diagnosed with hypertension this year as well as chronic kidney disease stage II. She is chronically on lisinopril for which she had been on 5 mg a day and Dr. Gavin recently increased it to 10 mg a day. She has a brother with a history of heart disease although she is unsure of the details. He this past year. No known coronary artery disease in her parents. Review of Systems Const: Reports: body aches and change in weight (gain since quit smoking); Denies: fever(s) or chills Eyes: Reports: other (had cataract surgery) ENMT: Denies: throat pain or nasal congestion Card: Reports: palpitations, irregular heart rhythm and dyspnea on exertion; Denies: edema or orthopnea Resp: Reports: dyspnea, non-productive cough (mild, at times feels like something stuck but won't come up ) and pain on inspiration; Denies: wheezing or chest congestion GI: Reports: bloating; Denies: nausea, vomiting, diarrhea, constipation, hematochezia or melena : Denies: difficulty voiding Musc: Denies: extremity pain Skin/Breast: Denies: rash Neuro: Denies: headache(s) or difficulty walking Psych: Reports: anxiety (with trouble breathing) Ismael/Lymph: Denies: easy bruising Medications/Allergies Home Medications Medication Instructions Recorded Confirmed Last Taken Type lisinopril 10 mg PO DAILY 03/13/21 03/13/21 03/12/21 History Allergies Allergy/AdvReac Type Severity Reaction Status Date / Time Penicillins Allergy ALGY-Watery Verified 03/13/21 10:18 Eye PFSH Acute PFSH: Medical History (Updated 03/13/21 @ 22:41 by Maureen Dee MD) Atrial flutter (~03/13/21) Chronic kidney disease, stage II (mild) follows with Dr. Gavin,, diagnosed based on urinary protein COVID-19 vaccine administered 2 primary doses mrna vaccine + booster shot x 1 4 para 4 History of smoking quit ~02/09/2021 Hypertension Surgical History (Updated 03/13/21 @ 22:11 by Maureen Dee MD) History of appendectomy History of cataract surgery History of hysterectomy Family History (Updated 03/13/21 @ 22:12 by Maureen Dee MD) Brother Heart disease details unknown Social History (Updated 03/13/21 @ 22:14 by Maureen Dee MD) Smoking and tobacco status: former smoker Quit status (tobacco): has quit using tobacco Year quit tobacco: 02/09/2021 Former quit date comment: after several attempts Alcohol intake: current Alcohol intake frequency: few times a month Substance/Drug Use: never Current occupational status: other Details: 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 Vitals/I&O/Wt Last Vital Signs Temp 99.2 F 03/13/21 10:18 Pulse 120 H 03/13/21 18:37 Resp 24 H 03/13/21 18:37 BP 109/84 03/13/21 18:37 Pulse Ox 95 03/13/21 18:37 Weight last 48 hrs Weight 54.431 kg Physical Exam Narrative: EXAM NARRATIVE: Constitutional: Awake and alert, cooperative HEENT: Normocephalic, atraumatic, pupils are equally reactive, extraocular movements intact, nasopharynx is clear, oropharynx is clear with moist mucous membranes Neck: Supple, no JVD Respiratory: Clear to auscultation bilaterally without any rales rhonchi or wheezes noted Cardiovascular: Irregular tachycardic rhythm, 2+ pulses x4 Abdomen: Soft, nontender, positive bowel sounds Extremities: Trace pretibial edema bilaterally, no acute synovitis noted to ankles, knees, wrists Skin: Dry, a few minor sores, no acute rashes Neuro: Speech clear, face symmetric, handgrip equal bilaterally, strength equal at both feet Psych: Oriented x4, normal affect Data : 03/13/21 13:44 03/13/21 13:44 Other Labs: Laboratory Results WBC 10.9 10^3/uL (4.0-10.0) H 03/13/21 13:44 RBC 4.06 10^6/uL (4.1-5.3) L 03/13/21 13:44 Hgb 12.6 g/dL (11.5-15.3) 03/13/21 13:44 Hct 40.3 % (37.0-47.0) 03/13/21 13:44 MCV 99.3 fl (81-99) H 03/13/21 13:44 MCH 31.0 pg (28.0-34.0) 03/13/21 13:44 MCHC 31.3 g/dL (30.0-36.0) 03/13/21 13:44 RDW 13.3 % (12.1-15.1) 03/13/21 13:44 Plt Count 271 10^3/cmm (130-400) 03/13/21 13:44 MPV 9.1 fL (7.4-10.4) 03/13/21 13:44 Neut % (Auto) 71.4 % 03/13/21 13:44 Lymph % (Auto) 17.8 % 03/13/21 13:44 [place] % (Auto) 8.9 % 03/13/21 13:44 Eos % (Auto) 0.7 % 03/13/21 13:44 Baso % (Auto) 0.7 % 03/13/21 13:44 Neut # (Auto) 7.81 10^3/uL (1.8-7.7) H 03/13/21 13:44 Lymph # (Auto) 2.0 10^3/uL (0.8-4.8) 03/13/21 13:44 [place] # (Auto) 1.0 10^3/uL (0.2-0.9) H 03/13/21 13:44 Eos # (Auto) 0.1 10^3/uL (0.0-0.8) 03/13/21 13:44 Baso # (Auto) 0.1 10^3/uL (0.0-0.1) 03/13/21 13:44 Nucleated RBC % (auto) 0.2 % 03/13/21 13:44 Nucleated RBCs # 0.0 /100WBC 03/13/21 13:44 PT 13.70 SECONDS (12.1-14.9) 03/13/21 13:44 INR 1.02 (0.8-1.2) 03/13/21 13:44 Fibrinogen 472 mg/dL (174-498) 03/13/21 13:44 D-Dimer 2.52 ug/mIFEU (0-0.59) H 03/13/21 13:44 Sodium 138 mmol/L (136-145) 03/13/21 13:44 Potassium 4.4 mmol/L (3.5-5.1) 03/13/21 13:44 Chloride 101 mmol/L (98-107) 03/13/21 13:44 Carbon Dioxide 25 mmol/L (22-29) 03/13/21 13:44 Anion Gap 16.4 (5-19) 03/13/21 13:44 BUN 10 mg/dL (8-23) 03/13/21 13:44 Creatinine 0.6 mg/dL (0.5-0.9) 03/13/21 13:44 GFR Calculation 99.4 mL/min (90-130) 03/13/21 13:44 Glucose 98 mg/dL (65-115) 03/13/21 13:44 Calculated Osmolality 285 mOsm/kg (285-295) 03/13/21 13:44 Calcium 8.5 mg/dL (8.5-10.5) 03/13/21 13:44 Total Bilirubin 0.4 mg/dL (0.15-1.2) 03/13/21 13:44 AST 45 U/L (0-32) H 03/13/21 13:44 ALT 137 U/L (0-33) H 03/13/21 13:44 Alkaline Phosphatase 65 IU/L (35-105) 03/13/21 13:44 Troponin T Baseline 17 ng/L (0-10) H 03/13/21 13:44 Troponin T 120 Minute 16.77 ng/L (0-10) H 03/13/21 15:27 Delta Troponin T -0.23 ABS# (0-10) L 03/13/21 15:27 Total Protein 6.9 g/dL (6.6-8.7) 03/13/21 13:44 Albumin 4.1 g/dL (3.5-5.2) 03/13/21 13:44 Globulin 2.8 g/dL (1.3-4.6) 03/13/21 13:44 Coronavirus 229E (PCR) Not detected (NOT DETECT) 03/13/21 18:56 SARS-CoV-2 (PCR) Not detected (NOT DETECT) 03/13/21 18:56 SARS-CoV-2 Ag (Rapid) Negative (Negative) 03/13/21 11:10 Impressions Chest X-Ray 03/13/21 10:29 IMPRESSION: No evidence of active cardiopulmonary disease. Chest CTA 03/13/21 14:12 IMPRESSION: 1. No pulmonary embolism. 2. Small right pleural effusion with basilar infiltrate suggesting pneumonia 3. Mild emphysema. A&P Assessment and plan (1) Dyspnea on exertion: Present over the last week, quite severe at times and progressively worsening to the point today she became extremely short of breath taking a shower. Very well may be due to atrial flutter which has been identified today in the emergency room, but I am also concerned about anginal equivalent with the progressive nature of her symptoms over the last week. 2-hour troponin delta today was negative. EKG without any definitive ST segment changes though limited ischemia interpretation due to tachycardia. Has a small right pleural effusion and some trace edema on examination but does not describe orthopnea or PND and initial impression is that these abnormalities are secondary to atrial flutter with rapid ventricular response. Mild elevation in transaminitis would potentially also go along with this. CTA of the chest shows some mild emphysematous changes but she does not describe wheezing. Nevertheless she quit smoking after several months of trying the first week of February. Does not describe increased sputum production. She does frequently have a sensation of something being stuck that she cannot get up. Radiological interpretation is of possibility of pneumonia but seems less likely based on history. She has received COVID vaccination with mRNA vaccine plus booster. Status: Acute (2) Atrial flutter with rapid ventricular response: new onset Status: Acute (3) Hypertension: chrnoically on lisinopril, dose recently increased to 10mg daily by Dr Gavin Status: Chronic Qualifiers: Hypertension type: primary hypertension Qualified Code(s): I10 - Essential (primary) hypertension (4) Chronic kidney disease, stage II (mild): Status: Chronic (5) History of smoking: quit 02/09/2021 Status: Chronic Additional A&P Information Elevated d-dimer without evidence of PE on CTA imaging Mild transaminitis Small right pleural effusion with basilar infiltrate suggesting pneumonia per radiology interpretation of CTA chest Mild emphysema changes on CTA chest in patient with history of smoking Observation admission for now Blood cultures Check ferritin, fibrinogen, ldh, ck, crp, procalcitonin, magnesium COVID PCR pending, rapid COVID negative Received treatment dose lovenox in ED, will continue for now Started on cardizem drip in ED, currently at 5, will continue and monitor response to treatment Telemetry monitoring Repeat EKG 2 hour troponin delta negative Check TSH due to arrhythmia Check lipid panel for risk stratification Check BNP given small pleural effusion and trace edema Echocardiogram in am assuming able to obtain rate control Pending results of above will determine further plans of care Recheck liver enzymes in am to ascertain trend Presently hold home lisinopril,though anticipate continuation at discharge, p ossibly at previous 5 mg dosing if requires initiation of other medications for arrhythmias that might impact blood pressures Monitor blood pressures for need to adjust medications Given low suspicion for acute infectious process currently have not initiated any antibiotics, monitor for changes As needed breathing treatment Encouraged continuation of smoking cessation Supportive care otherwise Treatment dose lovenox currently covers for VTE prophylaxis Attestations Medical Necessity Statement*: Currently anticipate a stay less than two midnights in patient with new onset symptomatic atrial flutter. Also with history concerning for anginal equivalent on patient without history of CAD. Plans are as indicated. Coding Level of Care Code Acute Bar And Filler Assembler for Mary Ramirez Diagnoses Dyspnea on exertion R06.00 Atrial flutter with rapid ventricular response I48.92 Hypertension I10 Hypertension type: primary hypertension Chronic kidney disease, stage II (mild) N18.2 History of smoking Z87.891
[2021-03-13 21:16] LABS: C Reactive Protein 57.3 mg/L (0.0-4.9); Creatine Phosphokinase 85 U/L (26-192); Lactate Dehydrogenase 234 U/L (135-214)
[2021-03-13 21:22] LABS: Procalcitonin 0.07 ng/mL (0-0.5)
[2021-03-13 21:36] LABS: Ferritin 304 ng/mL (15-150)
--- NOTE | 2021-03-13 21:36 | ECG_ITS ---
[facility] Test Date: 2021-03-13 Pat Name: Isela Bermeo Department: Room: Gender: Female Boxing Inspector: : 1950 Requested By: Maureen Dee Order Number: [id number] Igor MD: Charlotte Pinto M.D. Measurements Intervals [place] Rate: 101 P: [place]: QRS: 11 QRSD: 93 T: 39 QT: 349 QTc: 454 Interpretive Statements ATRIAL FLUTTER WITH RAPID VENTRICULAR RESPONSE SEPTAL MYOCARDIAL INFARCTION , OF INDETERMINATE AGE [40+ ms Q WAVE IN V1/V2] Compared to ECG 03/13/2021 18:37:17 No significant changes Electronically Signed On 03-14-2021 13:04:19 RAMP FLIGHT ATTENDANT by Charlotte Pinto M.D. [id number]
--- NOTE | 2021-03-13 23:01 | ECG_ITS ---
[facility] Test Date: 2021-03-13 Pat Name: Isela Bermeo Department: Room: ED Gender: Female Magnaflux Operator: : 1950 Requested By: Maureen Dee Order Number: [id number] Igor MD: Charlotte Pinto M.D. Measurements Intervals [place] Rate: 109 P: [place]: QRS: -3 QRSD: 77 T: 56 QT: 344 QTc: 465 Interpretive Statements ATRIAL FLUTTER WITH RAPID VENTRICULAR RESPONSE LOW QRS VOLTAGE [QRS DEFLECTION < 0.5/1.0 mV IN LIMB/CHEST LEADS] Compared to ECG 03/13/2021 18:37:17 Myocardial infarct finding no longer present Electronically Signed On 03-14-2021 13:04:36 DRILLER HAND by Charlotte Pinto M.D. [id number]
[2021-03-14] VITALS (67 sets, daily range): BP systolic 135; BP diastolic 81; PULSE 65–86; RESP 15–37; O2SAT 93–94
[2021-03-14 04:58] LABS: Basophils # 0.1 10^3/uL (0.0-0.1); Eosinophils # 0.1 10^3/uL (0.0-0.8); Eosinophils % 1.4 %; Hematocrit 36.9 % (37.0-47.0); Hemoglobin 11.4 g/dL (11.5-15.3); Lymphocytes # 1.8 10^3/uL (0.8-4.8); Lymphocytes % 22.6 %; Mean Corpuscular HGB Conc 30.9 g/dL (30.0-36.0); Mean Corpuscular Hemoglobin 31.5 pg (28.0-34.0); Mean Corpuscular Volume 101.9 fl (81-99); Mean Platelet Volume 9.4 fL (7.4-10.4); Monocytes # 0.8 10^3/uL (0.2-0.9); Monocytes % 9.6 %; Neutrophils # 5.14 10^3/uL (1.8-7.7); Nucleated Red Blood Cells % 0.3 %; Platelet Count 239 10^3/cmm (130-400); Red Blood Count 3.62 10^6/uL (4.1-5.3); Red Cell Distribution Width 13.4 % (12.1-15.1); White Blood Count 7.9 10^3/uL (4.0-10.0)
[2021-03-14 05:11] LABS: Troponin T (5th) Once 18 ng/L (0-10)
[2021-03-14 05:18] LABS: Alanine Aminotransferase 104 U/L (0-33); Albumin Level 3.7 g/dL (3.5-5.2); Alkaline Phosphatase 55 IU/L (35-105); Aspartate Amino Transferase 33 U/L (0-32); Blood Urea Nitrogen 12 mg/dL (8-23); Calcium 8.5 mg/dL (8.5-10.5); Carbon Dioxide 26 mmol/L (22-29); Chloride 100 mmol/L (98-107); Globulin 2.7 g/dL (1.3-4.6); Glomerular Filtration Rate 83.2 mL/min (90-130); Glucose 93 mg/dL (65-115); Osmolality Calculated 285 mOsm/kg (285-295); Sodium 138 mmol/L (136-145); Thyroid Stimulating Hormone 2.09 uIU/mL (0.27-4.20); Total Bilirubin 0.4 mg/dL (0.15-1.2); Total Protein 6.4 g/dL (6.6-8.7)
[2021-03-14 05:21] LABS: Chol HDL Ratio 0.09 mg/dL (0.0-4.40); Cholesterol < 4 mg/dL (0-200); HDL Cholesterol 45 mg/dL (60-100); LDL Cholesterol Calculated -68 mg/dL (50-129); NT Pro B Type Natriuretic Pept 678 pg/mL (0-125); Triglycerides 133 mg/dL (0-150)
[2021-03-14 05:25] LABS: Anion Gap 16.2 (5-19); Potassium 4.2 mmol/L (3.5-5.1)
[2021-03-14 05:26] LABS: LDL HDL Ratio -1.51 RATIO (0.00-3.22)
[2021-03-14] MEDS: acetaminophen 325 mg Tablet 650 MG PO (06:00)
--- NOTE | 2021-03-14 07:56 | USCV_ITS ---
Isela Bermeo Age: 70 Gender: F : 1950 Exam Date: 03/14/2021 08:39 Ordering Phys: Kris Rodriguez MD Technologist: Fatou Garcia [place] [facility] [place]: [place]WELL[place] HISTORY: Lower extremity swelling. PROCEDURES: Venous duplex imaging was performed in bilateral lower extremities. The following venous structures were evaluated: common femoral vein, profunda vein, proximal portion of the greater saphenous vein, superficial femoral vein, and the popliteal vein. In addition, the posterior tibial and peroneal trunk were evaluated. Serial compression, augmentation maneuvers, and spectral Doppler flow evaluation were performed. FINDINGS: Normal 2-D Doppler and augmentation and compressibility throughout the lower extremity venous structures. Additional imaging through the proximal calf veins also reveals no thrombus. Limited evaluation of the greater saphenous vein is patent with no thrombus. CONCLUSIONS No DVT bilateral lower extremities. Dr. Zofia Puckett DO (Electronically Signed) Final Date: 14 March 2021 09:29 S
--- NOTE | 2021-03-14 10:00 | ECG_ITS ---
[facility] Test Date: 2021-03-14 Pat Name: Isela Bermeo Department: Room: ED Gender: Female Core Dropper: : 1950 Requested By: Maureen Dee Order Number: [id number] Igor MD: Charlotte Pinto M.D. Measurements Intervals [place] Rate: 66 P: 42 NM: 187 QRS: 12 QRSD: 90 T: 31 QT: 408 QTc: 429 Interpretive Statements SINUS RHYTHM LOW QRS VOLTAGE IN PRECORDIAL LEADS [QRS DEFLECTION < 1.0 mV IN CHEST LEADS] Compared to ECG 03/13/2021 21:45:18 Low QRS voltage now present Atrial flutter no longer present Myocardial infarct finding no longer present Electronically Signed On 03-14-2021 13:14:35 MEDIA PLANNER / BUYER by Charlotte Pinto M.D. [id number]
[2021-03-14] MEDS: albuterol 8 gm MDI 2 PUFF INHALATION (13:31)
--- NOTE | 2021-03-14 17:18 | P.DS_ITS ---
Discharge Providers Date of Admission: 03/14/21 02:21 Date of Discharge: March 14, 2021 Attending Provider at Admission: Maureen Dee MD Attending Provider at Discharge: Kris Rodriguez Primary Care Provider: Fatou Fitzgerald Diagnoses at Discharge Discharge Diagnosis (1) Dyspnea on exertion: Status: Acute (2) Atrial flutter with rapid ventricular response: Status: Acute (3) Hypertension: Status: Chronic Qualifiers: Hypertension type: primary hypertension Qualified Code(s): I10 - Essential (primary) hypertension (4) Chronic kidney disease, stage II (mild): Status: Chronic Permanent problem details: follows with Dr. Gavin,, diagnosed based on urinary protein (5) History of smoking: Status: Chronic Permanent problem details: quit ~02/09/2021 Reason for Visit Reason for Visit: SOB Hospital Course Hospital Course Pleasant 70-year-old with history of chronic kidney disease stage II, HTN, former smoker, presented to the hospital for assessment due to dyspnea, especially limited exertion, started feeling worse after a workout recently after which felt could not recover, in ER noted to be in atrial flutter with RVR, heart rate in 160s, with improvement 120s spontaneously, started on Cardizem drip, requested initially converted to sinus rhythm. Was assessed for COVID-19 with PCR testing which was negative. D-dimer noted abnormal 2.52, was assessed by CT angiogram of the chest which showed no PE, but small right pleural effusion with basilar infiltrate suggestive of pneumonia. Will start empirically on ceftriaxone and azithromycin, will complete course of Levaquin. Lower extremity venous duplex without DVT. Noted troponin abnormality on t roponin series, although without peak, 17-16.77-18. Not suggestive of acute OR. EKG similarly without evidence of ischemia. She is started on metoprolol 12.5 mg twice daily. Due to [id number] risk score of 3 per discussion of risks and benefits is started on Eliquis. With dyspnea exertion, received treatment with albuterol inhaler, which helped, and so was provided with 1 on discharge in addition to Levaquin course. She ambulated well after treatment with albuterol inhaler, with resolution of dyspnea on exertion. No chest pain or pressure. Given risk factors for coronary disease, not entirely normal troponin, is additionally referred for assessment by stress testing. Echocardiogram was also obtained Giurgius admission, although results of the study are not yet available. She is aware of the need to inquire about results at follow-up. She is for now asked to hold off additional strenuous exercises until results ARE available and she follows up with primary provider. Physical Exam Const: COMMON NORMALS: no acute distress and patient oriented x3 HENMT: COMMON NORMALS: oropharynx normal Neck/C-Spine: COMMON NORMALS: no JVD Resp: COMMON NORMALS: normal respiratory effort and clear to auscultation bilaterally AUSCULTATION: clear to auscultation bilaterally Cardio: COMMON NORMALS: no JVD, regular rhythm, S1 normal heart sound present, S2 normal heart sound present and No murmurs present (Cardio) RHYTHM: regular rhythm HEART SOUNDS: S1 normal heart sound present and S2 normal heart sound present GI: COMMON NORMALS: Normal to inspection, nondistended, normoactive bowel sounds present, Soft to palpation and non-tender PALPATION: Yes Soft to palpation Extremity: COMMON NORMALS: no joint enlargement and no pedal edema Neuro: COMMON NORMALS: patient oriented x3 and moves all extremities Skin: COMMON NORMALS: no rashes or lesions noted GENERAL SKIN EXAM: no rashes or lesions noted Discharge Data Data Completed and Pending: Completed Studies During Hospitalization Category Date Time Status CT angio chest PE protcl [id number] Stat Cat Scan 03/13/21 14:12 Completed XR chest 1V jossie ble [id number] Stat Exams 03/13/21 10:29 [place] [id number] Routin e Ultrasound 03/14/21 07:56 Completed Pending at discharge Category Date Time Status Sestamibi Stress Test Request Aloki ne Exams 03/15/21 08:00 Ordered Blood Culture Sta t Lab 03/13/21 19:45 Results NM lorene perf SPECT r/s* [id number] Routin e Nuc Med 03/15/21 10:58 Ordered CV. echo complete * [id number] Routine Ultrasound 03/14/21 23:08 Taken Labs from last 24 hours 03/14/21 03/14/21 03/14/21 04:30 04:30 04:30 WBC RBC Hgb Hct MCV MCH MCHC RDW Plt Count MPV Neut % (Auto) Lymph % (Auto) [place] % (Auto) Eos % (Auto) Baso % (Auto) Neut # (Auto) Lymph # (Auto) [place] # (Auto) Eos # (Auto) Baso # (Auto) Nucleated RBC % (a uto) Nucleated RBCs # Fibrinogen Sodium 138 Potassium 4.2 Chloride 100 Carbon Dioxide 26 Anion Gap 16.2 BUN 12 Creatinine 0.7 GFR Calculation 83.2 L Glucose 93 Calculated Osmolal ity 285 Calcium 8.5 Magnesium Ferritin Total Bilirubin 0.4 AST 33 H ALT 104 H Alkaline Phosphata se 55 Lactate Dehydrogen ase Creatine Kinase Troponin T Gen 5 n g/L 18 H C-Reactive Protein NT-Pro-B Natriuret Pep 678 H Total Protein 6.4 L Albumin 3.7 Globulin 2.7 Triglycerides 133 Cholesterol < 4 LDL Cholesterol, C alc -68 L HDL Cholesterol 45 L LDL/HDL Ratio -1.51 L Cholesterol/HDL Ra merry 0.09 Procalcitonin TSH 2.09 Coronavirus 229E ( PCR) SARS-CoV-2 (PCR) 03/14/21 03/13/21 03/13/21 04:30 18:56 13:44 WBC 7.9 RBC 3.62 L Hgb 11.4 L Hct 36.9 L MCV 101.9 H MCH 31.5 MCHC 30.9 RDW 13.4 Plt Count 239 MPV 9.4 Neut % (Auto) 65.0 Lymph % (Auto) 22.6 [place] % (Auto) 9.6 Eos % (Auto) 1.4 Baso % (Auto) 1.0 Neut # (Auto) 5.14 Lymph # (Auto) 1.8 [place] # (Auto) 0.8 Eos # (Auto) 0.1 Baso # (Auto) 0.1 Nucleated RBC % (a uto) 0.3 Nucleated RBCs # 0.0 Fibrinogen Sodium Potassium Chloride Carbon Dioxide Anion Gap BUN Creatinine GFR Calculation Glucose Calculated Osmolal ity Calcium Magnesium 2.0 Ferritin 304 H Total Bilirubin AST ALT Alkaline Phosphata se Lactate Dehydrogen ase 234 H Creatine Kinase 85 Troponin T Gen 5 n g/L C-Reactive Protein 57.3 H NT-Pro-B Natriuret Pep Total Protein Albumin Globulin Triglycerides Cholesterol LDL Cholesterol, C alc HDL Cholesterol LDL/HDL Ratio Cholesterol/HDL Ra merry Procalcitonin 0.07 TSH Coronavirus 229E ( PCR) Not detected SARS-CoV-2 (PCR) Not detected 03/13/21 13:44 WBC RBC Hgb Hct MCV MCH MCHC RDW Plt Count MPV Neut % (Auto) Lymph % (Auto) [place] % (Auto) Eos % (Auto) Baso % (Auto) Neut # (Auto) Lymph # (Auto) [place] # (Auto) Eos # (Auto) Baso # (Auto) Nucleated RBC % (a uto) Nucleated RBCs # Fibrinogen 472 Sodium Potassium Chloride Carbon Dioxide Anion Gap BUN Creatinine GFR Calculation Glucose Calculated Osmolal ity Calcium Magnesium Ferritin Total Bilirubin AST ALT Alkaline Phosphata se Lactate Dehydrogen ase Creatine Kinase Troponin T Gen 5 n g/L C-Reactive Protein NT-Pro-B Natriuret Pep Total Protein Albumin Globulin Triglycerides Cholesterol LDL Cholesterol, C alc HDL Cholesterol LDL/HDL Ratio Cholesterol/HDL Ra merry Procalcitonin TSH Coronavirus 229E ( PCR) SARS-CoV-2 (PCR) Vitals: Last Vital Signs Temp 99.2 F 03/13/21 10:18 Pulse 72 03/14/21 13:31 Resp 17 03/14/21 13:31 BP 135/81 03/14/21 04:40 Pulse Ox 94 03/14/21 13:31 Discharge Plan Discharge Patient Disposition: Home Condition: Stable Prescriptions: New Eliquis 5 mg Tablet 5 mg PO BID@0900,2100 Qty: 180 RF: 0 albuterol sulfate [Ventolin HFA] 90 mcg/actuation Hfa Aerosol Inhaler 2 puff inhalation Q4H.RESPIRATORY PRN (Reason: Shortness Of Breath) Qty: 6.7 RF: 1 levofloxacin 500 mg tablet 500 mg PO DAILY 7 Days RF: 0 metoprolol tartrate 25 mg tablet 12.5 mg PO BID Qty: 90 RF: 0 nitroglycerin 0.4 mg tablet, sublingual 0.4 mg sublingual Q5M PRN (Reason: chest pain) Qty: 25 RF: 0 Continued lisinopril 5 mg tablet 10 mg PO DAILY RF: 0 Discharge Orders: Discharge Order (Routine); Ordered 03/14/21 Ordered By: Kris Rodriguez Other Ambulatory Orders: Sestamibi Stress Test Request (Routine) Timeframe: 2 Days Facility: [facility] - Location: [facility] Diagnostic Laboratory Ordered By: Kris Rodriguez Referrals: Fatou Fitzgerald PA [Primary Care Provider] - 4-7 days Discharge Diet: Cardiac Discharge Activity: Increase activity as tolerated and Limit activity as instructed Patient Instructions: Levofloxacin (By mouth), Apixaban (By mouth), Atrial Flutter (GEN), Bacterial Pneumonia (GEN), Coronary Artery Disease in Women (GEN) Activity Restrictions/Additional Instructions: Please follow-up with stress test. In case of chest tightness, take nitroglycerin, in case symptoms not resolving after 3 doses, call 911. Discussed results of stress testing with your primary doctor. Please note also that echocardiogram has been taken, but results are not yet available. Please follow-up with your primary doctor regarding the of the echo. Please discuss again with your primary doctor regarding risk of stroke with atrial fibrillation. Initiated on Eliquis currently to mitigate the risk. As this medication change your blood, please be cautious not to injure yourself, in case of any bleeding, stop medication, seek medical attention. Hold off on additional strenuous exercise until completion of stress test and discussion of the results with you, . Please note also due to suggestion of possible pneumonia and right lower lung, accompanied with small pleural effusion he was given prescription for Levaquin to complete for possible infection. Please follow-up with your primary doctor for results of pneumonia. Consider for imaging to ascertain resolution of infiltrate and small pleural effusion. In case of lack resolution further diagnostic test may be needed with history of smoking to exclude malignancy or other causes. In case of persistence of dyspnea on exertion, please discuss referral for pulmonary function testing. Please continue follow-up with regards to chronic renal disease. Avoid any NSAIDs or other medications that can cause kidney injury. Discharge Attestations Time Spent in Discharge Care*: greater than 30 min Quality Metrics Clinical Quality Measures During this hospital stay, did patient experience: None Coding Level of Care Code Acute [facility] note Diagnoses Dyspnea on exertion R06.00 Atrial flutter with rapid ventricular response I48.92 Hypertension I10 Hypertension type: primary hypertension Chronic kidney disease, stage II (mild) N18.2 History of smoking Z87.891
--- NOTE | 2021-03-14 23:08 | USCV_ITS ---
Isela Bermeo Age: 70 Gender: F : 1950 Exam Date: 03/14/2021 06:55 Ordering Phys: Maureen Dee MD Technologist: BURKE [place] [facility] [place]: NEW ONSET OF AFIB BP: 132 / 90 HR: 67 Rhythm: Sinus Technical Quality: Technically difficult study MEASUREMENTS (Male / Female) Normal Values 2D ECHO LV Diastolic Diameter PLAX 3.8 cm 4.2 - 5.9 / 3.9 - 5.3 cm LV Systolic Diameter PLAX 2.5 cm IVS Diastolic Thickness 1.5 cm 0.6 - 1.0 / 0.6 - 0.9 cm IVS Systolic Thickness 1.8 cm LVPW Diastolic Thickness 1.3 cm 0.6 - 1.0 / 0.6 - 0.9 cm LVPW Systolic Thickness 1.7 cm LVOT Diameter 2.0 cm LV Ejection Fraction 2D Teich 62.3 % LV Ejection Fraction MOD 2C 54.2 % LV Ejection Fraction 2C AL 55.4 % LA Diameter 3.4 cm Aorta at Sinotubular Diameter 2.2 cm M-MODE Aortic Annulus Diameter 2.5 cm LA Ao Ratio MM 1.5 MV E Point Septal Separation 0.6 cm DOPPLER AV Peak Velocity 119.0 cm/s LVOT Peak Velocity 92.0 cm/s AV Area Cont Eq vti 2.8 cm squared AV Area Cont Eq pk 2.5 cm squared MV Area PHT 3.9 cm squared Mitral E to A Ratio 1.3 MV E' Velocity 63.5 cm/s Mitral E to MV E' Ratio 16.3 Mitral E to LV E' Lateral Ratio 15.3 Mitral E to LV E' Septal Ratio 17.8 TR Peak Velocity 343.0 cm/s TR Peak Gradient 47.1 mmHg Right Atrial Pressure 3.0 mmHg Pulmonary Artery Systolic Pressu 50.1 mmHg PV Peak Velocity 82.0 cm/s RV Acceleration Time 0.1 s RV Ejection Time 0.4 s RV AcT/ET 0.3 FINDINGS Left Ventricle Normal left ventricular cavity size. Normal left ventricular systolic function. No regional wall motion abnormalities. Left ventricular ejection fraction is estimated at 65 %. Normal diastolic function. Right Ventricle The right ventricle is normal in size and function. RVSP could not be calculated due to incomplete tricuspid regurgitation velocity profile. Right Atrium The right atrium is normal in size. Left Atrium The left atrium is normal in size. Mitral Valve Moderately thickened mitral valve. Moderate mitral annular calcification. No mitral valve stenosis. No mitral valve regurgitation. Aortic Valve Mild aortic valve calcification. No aortic valve stenosis. No aortic valve regurgitation. Tricuspid Valve Structurally normal tricuspid valve without significant stenosis or regurgitation. Pulmonic Valve Structurally normal pulmonic valve without significant stenosis. There is no pulmonic regurgitation. Pericardium Normal pericardium without effusion. Aorta Normal ascending aorta dimension. CONCLUSIONS 1-Normal left ventricular cavity size. Normal left ventricular systolic function. No regional wall motion abnormalities. Left ventricular ejection fraction is estimated at 65 %. Normal diastolic function. 2-Moderately thickened mitral valve. Moderate mitral annular calcification. No mitral valve stenosis. No mitral valve regurgitation. 3-Moderately thickened mitral valve. Moderate mitral annular calcification. No mitral valve stenosis. No mitral valve regurgitation. 4-The right ventricle is normal in size and function. RVSP could not be calculated due to incomplete tricuspid regurgitation velocity profile. 5-There is no pericardial effusion. 6-Right atrial pressure is around 5 mm of mercury. 7-There are no prior echocardiogram studies to compare. Gabrielle Guevara MD (Electronically Signed) Final Date: 14 March 2021 17:44 S
== END 2021-03-14 17:44 | disposition home or self-care (01) ==
LOC: ER 03-14 00:25 → ER IP 03-14 02:21
PROVIDERS: Nurse Practitioner Family; Admitting Provider Hospitalist; Emergency Provider Emergency Medicine; PCP Physician Assistant; Visit Provider Internal Medicine
DX: R06.00 Dyspnea, unspecified (principal); I48.91 Unspecified atrial fibrillation; I48.92 Unspecified atrial flutter; Z87.891 Personal history of nicotine dependence; I12.9 Hypertensive chronic kidney disease with stage 1 through stage 4 chronic kidney disease, or unspecified chronic kidney disease; N18.2 Chronic kidney disease, stage 2 (mild); M79.89 Other specified soft tissue disorders
CPT/HCPCS: 36415; 71045; 71275; 80053; 80061; 82550; 82728; 83615; 83735; 83880; 84145; 84443; 84484; 85025; 85378; 85384; 85610; 86140; 87040; 87426; 87635; 93005; 93306; 93970; 94640; 96365; 96367; 96372; 96375; 99285; G0378; J1650; J3490; J3535; Q9967

== ENCOUNTER 2021-04-03 08:01 | Outpatient (CLI) | payer MEDICARE, SELFPAY ==
[2021-04-03 08:26] VITALS: BMI 34.2
--- NOTE | 2021-04-03 09:28 | NMCV_ITS ---
NM lorene perf SPECT r/s* [id number] Isela Bermeo Age: 70 Gender: F : 1950 Exam Date: 04/03/2021 09:28 Ordering Phys: Kris Rodriguez MD Technologist: RAJAT Barboza Exam Location: [facility] Indications: DYSPNEA ON EXERTION STRESS TEST Please see separate stress test report in [facility] for full findings IMAGE PROTOCOL Rest/Stress 1 Lexiscan Day Radiopharmaceutical Dose (mCi) Administration Site Administered by Rest: Tc-99m 10.7 IV RAJAT Golden Sestamibi Stress:Tc-99m 32.5 IV RAJAT Golden Sestamibi Rest: 03-Apr-2021 60 Discovery 630 Stress: 03-Apr-2021 30 Discovery 630 0.4mg Lexiscan. Images obtained in supine and prone position. SPECT RESULTS Technical Quality: Excellent Raw Data Analysis: Normal Image Corrections: No attenuation or motion correction applied Summed Stress Score: 2 Summed Rest Score: 2 Summed Difference Score: 0 PERFUSION FINDINGS Small area of decreased tracer uptake was noted in in the apical lateral region, with no significant reversibility FUNCTIONAL RESULTS (calculated via Gated SPECT) Stress Image LV EF (%): 82 Stress EDV (mL):76 TID: 1.06 Stress ESV (mL):14 FUNCTIONAL FINDINGS: Segmental wall motion analysis revealing no gross wall motion abnormalities IMPRESSIONS 1. Myocardial perfusion imaging revealing small area of persistent decreased tracer uptake in the apical lateral region, suggestive of myocardial scarring versus attenuation artifact.. 2. Normal LV ejection fraction of 82%. 3. LV wall motion analysis revealing no gross wall motion abnormalities. 4. Normal LV volume. No significant coronary ischemia, based on the above findings Dr Paola Jeter MD FAC (Electronically Signed) Final Date: 03 April 2021 23:48 S
--- NOTE | 2021-04-03 10:45 | ECG_ITS ---
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 Interpretive Statements NAME OF STUDY: LEXISCAN SESTAMIBI STRESS TEST INDICATION: Exertional dyspnea PROCEDURE: At the baseline, the blood pressure was 128/87 mm Hg with a heart rate of 61 bpm. The electrocardiogram showed sinus bradycardia, low QRS voltage in limb and chest leads. Possible old anteroseptal infarcts. The Lexiscan was infused over a period of 20 seconds. A total of 0.4 milligrams of Lexiscan was infused. The stress phase was continued for a total of 5 minutes. Heart rate at the end of the stress phase was 80 bpm with a blood pressure of 142/82 mm Hg. The EKG at the peak infusion revealed no significant ST-T wave changes. Sestamibi was injected 20 seconds after the Lexiscan infusion. Blood pressure at the end of the recovery phase was 115/77 mm Hg with a heart rate of 86 beats per minute. CONCLUSION: 1. No significant EKG changes with the LexiScan infusion. 2. No LexiScan induced chest pain or cardiac arrhythmia. 3. Normal blood pressure and heart rate response. 4. Sestamibi/sestamibi perfusion scan pending; see separate report. Electronically Signed On 05-03-2021 6:36:59 BUSINESS DEVELOPMENT PROFESSIONAL by Charlotte Pinto M.D. [id number]
[2021-04-03] MEDS: regadenoson 0.4 Mg/5 ml Syringe IVP (10:56)
[2021-04-03 11:01] VITALS: BP 115/77; PULSE 84
== END 2021-04-03 08:02 | disposition home or self-care (01) ==
LOC: CDL 08:21
PROVIDERS: PCP Physician Assistant; Visit Provider Internal Medicine
DX: R06.00 Dyspnea, unspecified (principal); R07.89 Other chest pain; Z91.89 Other specified personal risk factors, not elsewhere classified; R06.02 Shortness of breath
CPT/HCPCS: 78452; 93017; A9500; J2785

== ENCOUNTER → 2022-06-13 14:10 | Outpatient (BNVA) | payer MEDICARE, SELFPAY | PROVIDERS: PCP Physician Assistant; Visit Provider Internal Medicine | DX: R06.00 Dyspnea, unspecified (principal); R00.2 Palpitations; I48.92 Unspecified atrial flutter; I12.9 Hypertensive chronic kidney disease with stage 1 through stage 4 chronic kidney disease, or unspecified chronic kidney disease; N18.2 Chronic kidney disease, stage 2 (mild); Z87.891 Personal history of nicotine dependence; Z79.01 Long term (current) use of anticoagulants | CPT/HCPCS: 93005; 99204 ==

== ENCOUNTER → 2022-12-12 14:04 | Outpatient (BNVA) | payer MEDICARE, SELFPAY | PROVIDERS: PCP Physician Assistant; Visit Provider Internal Medicine | DX: R06.00 Dyspnea, unspecified (principal); I48.92 Unspecified atrial flutter; I12.9 Hypertensive chronic kidney disease with stage 1 through stage 4 chronic kidney disease, or unspecified chronic kidney disease; N18.2 Chronic kidney disease, stage 2 (mild); Z87.891 Personal history of nicotine dependence | CPT/HCPCS: 99214 ==

== ENCOUNTER 2023-05-21 17:23 | Outpatient (CLI) | payer MEDICARE, SELFPAY ==
--- NOTE | 2023-05-21 17:25 | CT_ITS ---
WS: [id number] CT NECK WITH CONTRAST HISTORY: Soft tissue disorder TECHNIQUE: Contiguous 2 mm axial images are performed through the neck with intravenous contrast. Sag ittal and coronal reformats are also submitted. All CT scans at [facility] use at least one o f these dose optimization techniques: automated exposure control; mA and/or kV adjustment per patient size (includes targeted exams where dose is matched to clinical indication); or iterative reconstruc tion. CONTRAST: CONTRAST: Omnipaque 350; 100 mL IV. DLP: 199.14 mGy.cm COMPARISON: None. Markers placed over the posterior lower LEFT neck at the palpable mass site. There is no underlying mass identified. Prominent adipose tissue but there is no soft tissue thickeni ng and no mass or inflammatory process. No sebaceous cyst. There is a hypoattenuating soft tissue mass measuring 6 x 8 mm along the RIGHT oral pharynx. Small po lypoid mass extends into the oropharynx, best seen on image 40 of series 3. No additional abnormaliti es in the oropharynx or larynx. Torus tubarius is normal. Parapharyngeal fat is maintained. No significant lymphadenopathy is identified. Tiny RIGHT thyroid nodule. No osseous abnormalities. Visualized portions of the skull base demonstrate no abnormalities. Orbits and globes are within norm al limits. No soft tissue masses. Dental caries LEFT maxillary molars. Lung apices are clear. IMPRESSION: 1. No underlying mass noted along the inferior LEFT neck at the site of the palpable marker. 2. 6 x 8 mm low-attenuation nodule projecting into the RIGHT oropharynx needs to be further evaluate d by ENT. Neoplasm or benign polyp within the differential.
--- NOTE | 2023-05-21 17:41 | CT_ITS ---
WS: [id number] LDCT LUNG CANCER SCREENING HISTORY: HISTORY OF TOBACCO USE TECHNIQUE: Axial imaging performed from the apices to 1 cm below the costophrenic angles. Coronal and sagittal reformats are submitted with axial MIP series. All CT scans at [facility] use at least one of these dose optimization techniques: automated exposure control; mA and/or kV adjustment per patient size (includes targeted exams where dose is matched to clinical indication); or iterativ e reconstruction. DLP: 89.82 mGy.cm DIvol: Mean CTDIvol: 2.00 (mGy) COMPARISON: CT chest 03/13/2021 Diagnostic quality: Satisfactory Lungs: No pulmonary nodule or mass. No endobronchial lesions. Heart: Normal size heart with no pericardial effusion.. Other findings: Mild atherosclerosis aorta. Normal size pulmonary artery. No mediastinal or hilar jessie nopathy. Mild coronary artery calcification. Small hiatal hernia. Increase in thoracic kyphosis. IMPRESSION: CT/CT lung screening [id number] LUNG-RADS: 1-Negative FOLLOW UP: 12 Month: Continue annual screening with LDCT OTHER FINDINGS (S MODIFIER): None.
[2023-05-21] MEDS: iohexol 350 mg/mL 500 mL Btl (per mL) IV (17:59)
== END 2023-05-21 17:24 | disposition home or self-care (01) ==
LOC: RAD 17:23
PROVIDERS: PCP Physician Assistant; Visit Provider Physician Assistant
DX: Z12.2 Encounter for screening for malignant neoplasm of respiratory organs (principal); Z87.891 Personal history of nicotine dependence; M79.9 Soft tissue disorder, unspecified; J39.2 Other diseases of pharynx
CPT/HCPCS: 70491; 71271; Q9967

== ENCOUNTER → 2023-06-20 09:33 | Outpatient (BNVA) | payer MEDICARE, SELFPAY | PROVIDERS: PCP Physician Assistant; Visit Provider Nurse Practitioner Family | DX: I48.92 Unspecified atrial flutter (principal) | CPT/HCPCS: 93005; 99214 ==

== ENCOUNTER → 2023-07-03 08:53 | Outpatient (BNVA) | payer MEDICARE, SELFPAY | PROVIDERS: PCP Physician Assistant; Visit Provider Nurse Practitioner Family | DX: I48.3 Typical atrial flutter (principal); Z87.891 Personal history of nicotine dependence; I12.9 Hypertensive chronic kidney disease with stage 1 through stage 4 chronic kidney disease, or unspecified chronic kidney disease; N18.2 Chronic kidney disease, stage 2 (mild); Z79.01 Long term (current) use of anticoagulants | CPT/HCPCS: 99214 ==

== ENCOUNTER → 2023-07-11 12:49 | Outpatient (BNVA) | payer MEDICARE, SELFPAY | PROVIDERS: PCP Physician Assistant; Visit Provider Internal Medicine | DX: I48.3 Typical atrial flutter (principal) | CPT/HCPCS: 93005 ==

== ENCOUNTER 2023-07-19 10:01 | Day surgery (SDC) | payer MEDICARE, SELFPAY ==
--- NOTE | 2023-07-19 10:24 | ECG_ITS ---
[facility] Test Date: 2023-07-19 Pat Name: Isela Bermeo Department: Room: Gender: Female [employer] Supervisor: : 1950 Requested By: Samuel Ojeda Order Number: [id number] Igor MD: Samuel Ojeda M.D. Measurements Intervals [place] Rate: 103 P: 0 NH: 0 QRS: 17 QRSD: 101 T: 20 QT: 373 QTc: 489 Interpretive Statements ATRIAL FLUTTER WITH RAPID VENTRICULAR RESPONSE LOW QRS VOLTAGE IN EXTREMITY LEADS [QRS DEFLECTION < 0.5 mV IN LIMB LEADS] PATTERN CONSISTENT WITH PULMONARY DISEASE SEPTAL MYOCARDIAL INFARCTION , OF INDETERMINATE AGE [40+ ms Q WAVE IN V1/V2] Compared to ECG 07/11/2023 12:54:36 Indeterminate axis no longer present Myocardial infarct finding still present Electronically Signed On 07-19-2023 14:51:35 CDT by Samuel Ojeda M.D. [id number]
--- NOTE | 2023-07-19 10:25 | USCV_ITS ---
Isela Bermeo Age: 73 Gender: F : 1950 Exam Date: 07/19/2023 12:52 Ordering Phys: Samuel Ojeda M.D ([email or web address]) Technologist: GUANAKITO [place] [facility] [place]ication: A FIB BP: 106 / 73 HR: 88 Rhythm: Sinus Technical Quality: Good MEASUREMENTS (Male / Female) Normal Values Medications Per anesthesia team Complications None Proc. Components After anesthesia team straight patient, proceeded with advancement. Probe and obtaining images. FINDINGS Left Ventricle Right Ventricle Right Atrium Left Atrium LA Appendage IA Septum Mitral Valve Aortic Valve Tricuspid Valve Pulmonic Valve Pericardium Aorta CONCLUSIONS This is limited transesophageal echocardiogram obtained as patient started desaturating and after taking necessary pictures, probe was removed. LV systolic function is normal No left atrial appendage thrombus seen. Smoke seen. Samuel Ojeda MD (Electronically Signed) Final Date: 21 Jul 2023 11:20 S
[2023-07-19 10:40] VITALS: BP 105/70; PULSE 96; RESP 18; TEMP 36.6; O2SAT 98; BMI 37.0
[2023-07-19 11:03] LABS: Glucose Point of Care 97 mg/dL (70-110)
[2023-07-19] MEDS: sodium chloride 0.9% 1,000 ML 30 ML IV (11:14)
--- NOTE | 2023-07-19 11:46 | ANES.PREANE2 ---
Pre-Anesthetic Assessment Height/Weight: Height 1.52 m Weight 86.183 kg Temp Pulse Resp BP Pulse Ox O2 Del Method 97.8 F 96 18 105/70 98 Room Air 07/19/23 10:40 07/19/23 10:40 07/19/23 10:40 07/19/23 10:40 07/19/23 10:40 07/19/23 10:40 Operation Date: 07/19/23 12:30 Proposed Procedures p VILMA 88164, I48.3(Not Applicable) - Aurora Nunez anesthetic complications: None Was Beta Jason taken within 24 hours: N/A Was Clonidine taken within 24 hours: N/A Last intake: Intake Last Liquid Date 07/18/23 Last Liquid Time 20:00 Last Solid Date 07/18/23 Last Solid Time 17:00 Social No alcohol and No tobacco Airway Mallampati: Class I Dentition: full CV/HEM Atrial Fibrillation and Hypertension Metabolic Morbid Obesity Anesthetic Plan ASA status: 3 Anesthesia: MAC Risk of > 500 ml blood loss (7ml/kg in children): No Medications/Allergies Home Medications Medication Instructions Recorded Confirmed Last Taken Type lisinopril 5 mg tablet 10 mg PO DAILY 03/13/21 07/19/23 07/18/23 History albuterol sulfate 90 mcg/actuation 2 puff inhalation Q4H.RESPIRATORY 03/14/21 07/19/23 07/19/23 Rx aerosol inhaler (Ventolin HFA) PRN Shortness Of Breath #6.7 grams nitroglycerin 0.4 mg sublingual 0.4 mg sublingual Q5M PRN chest 03/14/21 07/19/23 Unknown Rx tablet pain #25 tabs dapagliflozin propanediol 10 mg 10 mg PO DAILY 12/12/22 07/19/23 07/18/23 History tablet (Farxiga) metoprolol tartrate 25 mg tablet 25 mg PO BID #180 tabs 06/20/23 07/19/23 07/19/23 Rx semaglutide 0.25 mg or 0.5 mg (2 0.25 mg SUBCUT DIRECTED 06/20/23 07/19/23 07/12/23 History mg/3 mL) subcutaneous pen injector (Ozempic) flecainide 50 mg tablet 50 mg PO Q12H #60 tabs 07/03/23 07/19/23 07/19/23 Rx apixaban 5 mg tablet (Eliquis) 5 mg PO BID 07/18/23 07/19/23 07/19/23 History Allergies Allergy/AdvReac Type Severity Reaction Status Date / Time Penicillins Allergy ALGY-Anaphy Verified 07/18/23 12:21 laxis Current Medications Generic Name Dose Route Start Last Admin Trade Name Freq PRN Reason Stop Dose Admin Sodium Chloride 1,000 mls @ 30 mls/hr 07/19/23 10:30 07/19/23 11:14 Sodium Chloride 0.9% IV 07/20/23 10:29 30 mls/hr .Q24H ALEXY Administration PFSH Anesthesia Medical History COVID-19 vaccine administered 2 primary doses mrna vaccine + booster shot x 1 4 para 4 Hypertension Chronic kidney disease, stage II (mild) follows with Dr. Gavin,, diagnosed based on urinary protein History of smoking quit ~02/09/2021 Atrial flutter (~03/13/21) Atrial flutter with rapid ventricular response Surgical History History of cataract surgery History of hysterectomy History of appendectomy Family History Brother Heart disease details unknown Social History Smoking and tobacco/nicotine status: former use of tobacco/nicotine Quit status (tobacco/nicotine): has quit using Year quit tobacco: 02/09/2021 Former quit date comment: after several attempts Alcohol intake: current Alcohol intake frequency: few times a month Substance/Drug Use: never Current occupational status: other Details: 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
[2023-07-19] MEDS: metoclopramide 5 mg/mL SDV 2 mL 10 MG IVP (12:04)
[2023-07-19] MEDS: citric acid-sodium citrate 30 mL UDC PO (12:05)
[2023-07-19] MEDS: famotidine 20 mg/2 mL INJ IVP (12:05)
--- NOTE | 2023-07-19 12:42 | W.PM.OPSUD ---
Surgery/Procedure H&P Update DATE OF PROCEDURE: July 19, 2023 DATE H&P PERFORMED: 07/03/23 H&P UPDATE INFORMATION: I have reviewed H&P completed within last 30 days, I have examined patient prior to procedure and No changes to prior documentation PREOP DIAGNOSIS: Atrial flutter with RVR PRIMARY INDICATION FOR PROCEDURE: Atrial flutter with RVR PLANNED PROCEDURE: Operation Date: 07/19/23 12:30 Proposed Procedures p VILMA [id number], I48.3(Not Applicable) - Samuel Ojeda M.D Cardioversion Anesthesia team present for sedation
--- NOTE | 2023-07-19 12:57 | PM.PROC ---
Procedure Note: Date of procedure: 07/19/23 Pre-procedure diagnosis: Atrial flutter with RVR Post-procedure diagnosis: other (Normal sinus rhythm) Procedure: VILMA/ Cardioversion: Patient confirmed that she has been taking Eliquis and has not missed any doses. After anesthesia team sedated patient, we proceeded with VILMA. Left atrial appendage thrombus was ruled out. We then proceeded with cardioversion with 200J synchronized shock x 1. She was successfully converted back to normal sinus rhythm. Complications: None Condition: stable Disposition: same day (Discharge home post anesthesia recovery.) Coding Level of Care Code Acute Code for gamal Ramirez
[2023-07-19 13:00] VITALS: BP 98/70; PULSE 77; RESP 14; O2SAT 98
[2023-07-19 13:15] VITALS: BP 91/66; PULSE 72; RESP 16; TEMP 36.8; O2SAT 95
--- NOTE | 2023-07-19 13:24 | ECG_ITS ---
[facility] Test Date: 2023-07-19 Pat Name: Isela Bermeo Department: Room: Gender: Female General Manager In Training: : 1950 Requested By: Samuel Ojeda Order Number: [id number] Igor MD: Samuel Ojeda M.D. Measurements Intervals [place] Rate: 67 P: 0 MI: 0 QRS: -10 QRSD: 87 T: 15 QT: 395 QTc: 419 Interpretive Statements SINUS RHYTHM LOW QRS VOLTAGE [QRS DEFLECTION < 0.5/1.0 mV IN LIMB/CHEST LEADS] PATTERN CONSISTENT WITH PULMONARY DISEASE SEPTAL MYOCARDIAL INFARCTION , PROBABLY OLD [40+ ms Q WAVE IN V1/V2] Compared to ECG 07/19/2023 10:42:58 Atrial flutter no longer present Myocardial infarct finding still present Electronically Signed On 07-19-2023 14:50:39 CDT by Samuel Ojeda M.D. [id number]
[2023-07-19 14:04] VITALS: BP 101/64; PULSE 66; RESP 16; TEMP 36.4; O2SAT 94
--- NOTE | 2023-07-19 14:20 | ANE.PACU2 ---
Inpatient post-anesthesia follow up: Airway intact: Yes Vital signs: Temperature 97.6 F Pulse Rate 66 Respiratory Rate 16 Blood Pressure 101/64 Pulse Oximetry 94 Oxygen Delivery Me thod Room Air Oxygen Flow Rate 6 Fraction of Inspir ed Oxygen Hydration adequate: Yes Nausea and vomiting: No Pain level: 1 Mental status: Baseline
== END 2023-07-19 14:26 | disposition home or self-care (01) ==
PROVIDERS: PCP Physician Assistant; Visit Provider Internal Medicine
PROC: (CPT 93312; principal; 2023-07-19 12:30)
PROC: 5A2204Z Restoration of Cardiac Rhythm, Single (ICD-10-PCS; 2023-07-19 12:30)
DX: I48.92 Unspecified atrial flutter (principal); I21.29 ST elevation (STEMI) myocardial infarction involving other sites
CPT/HCPCS: 36416; 82962; 92960; 93005; 93312; 93320; 93325; J2704; J2765; J3490; J7030

== ENCOUNTER → 2023-07-23 09:05 | Outpatient (BNVA) | payer MEDICARE, SELFPAY | PROVIDERS: PCP Physician Assistant; Visit Provider Nurse Practitioner Family | DX: I48.3 Typical atrial flutter (principal); F17.200 Nicotine dependence, unspecified, uncomplicated; R94.31 Abnormal electrocardiogram [ECG] [EKG] | CPT/HCPCS: 93005; 99213 ==

== ENCOUNTER 2023-07-26 09:22 | Outpatient (CLI) | payer MEDICARE, SELFPAY ==
--- NOTE | 2023-07-26 09:28 | FL_ITS ---
WS: [id number] Barium swallow and esophagram, 07/26/2023 Clinical Data: DYSPHAGIA Comparison: None. Fluoroscopy time: 1min [id number] # of spot films: 7 Findings: The patient swallowed the thick and thin barium, and it flowed through the hypopharynx without hesita tion. There is osteoarthritic spurring at C5-C6 which impinges slightly onto the posterior hypopharyn x. No stricture, mass, polyp or erosion was seen. No aspiration or penetration was seen. The barium entered the esophagus and there was normal motility throughout. No hiatal hernia, reflux, stricture, polyp, mass, erosion or ulcer was noted. No reflux was present. FL/FL barium swallow [id number] Impression: 1. Minimal osteoarthritis at C5-C6 impinging on the posterior hypopharynx. 2. Negative esophagus.
== END 2023-07-26 09:23 | disposition home or self-care (01) ==
LOC: RAD 09:22
PROVIDERS: PCP Physician Assistant; Visit Provider Specialist
DX: R13.10 Dysphagia, unspecified (principal)
CPT/HCPCS: 74220

== ENCOUNTER → 2023-10-17 11:18 | Outpatient (BNVA) | payer MEDICARE, SELFPAY | PROVIDERS: PCP Physician Assistant; Visit Provider Nurse Practitioner Family | DX: I48.3 Typical atrial flutter (principal); I10 Essential (primary) hypertension; F17.200 Nicotine dependence, unspecified, uncomplicated; R94.31 Abnormal electrocardiogram [ECG] [EKG] | CPT/HCPCS: 93005; 99213 ==

== ENCOUNTER 2024-08-10 13:09 | Emergency (ER) | payer MEDICARE, SELFPAY ==
[2024-08-10 13:17] VITALS: BP 188/112; PULSE 64; RESP 20; TEMP 36.4; O2SAT 95; BMI 34.2
[2024-08-10 13:20] VITALS: PULSE 58; O2SAT 95
--- NOTE | 2024-08-10 13:22 | XR_ITS ---
WS: [id number] XR hip RT 2-3V wo/w pel* [id number] REASON FOR EXAM: hip pain FINDINGS: Mild narrowing of the joint space with mild subchondral sclerosis and osteophytosis of the acetabulum. There is a deformity at the femoral neck and head junction. This appears to be due to osteophytosis of the femoral head. If there is a history of trauma a nondisplaced impacted subcapital fracture would have to be considered. Pubic rami are intact. XR/XR hip RT 2-3V wo/w pel* [id number] IMPRESSION: Mild to moderate osteoarthritis. Correlate with history of trauma as above.
--- NOTE | 2024-08-10 13:25 | ED_ITS ---
HPI - Back Pain/Injury 2 General: Chief Complaint: Back Pain/Injury Stated Complaint: lower back pain, R side pain Time Seen by Provider: 08/10/24 13:18 Source: patient Mode of arrival: ambulatory Limitations: no limitations History of Present Illness: 74-year-old female states she has a hist ory of chronic low back pain states that she had went to the bathroom and twisted to wipe and felt a pop in her right hip and has had severe pain since then states it is improved with standing but much worse if she tries to bend or walk she has some pain that goes down her thigh denies any bowel or bladder incontinence denies any fever Associated symptoms: Deny abdominal pain, chills, dysuria, fever(s), nausea or vomiting Related Data Home Medications ?Medication ?Instructions ?Recorded ?Confirmed dapagliflozin propanediol 10 mg 10 mg PO DAILY 3 10/17/23 tablet (Farxiga) semaglutide 0.25 mg or 0.5 mg (2 0.25 mg SUBCUT DIR ECTED 06/20/23 10/17/23 mg/3 mL) subcutaneous pen injector (Ozempic) Previous Rx's ?Medication ?Instructions ?Recorded albuterol sulfate 90 mcg/actuation 2 puff inhalation Q 4H.RESPIRATORY 03/14/21 aerosol inhaler (Ventolin HFA) PRN Shortness Of Breath #6.7 grams nitroglycerin 0.4 mg sublingual 0.4 mg sublingual Q5M PRN chest 03/14/21 tablet pain #25 tabs flecainide 50 mg tablet See Rx Instructions .Route 0 07/02/24 .COMPLEX #180 tabs lisinopril 10 mg tablet 10 mg PO DAILY #90 tabs 06/10 07/03 metoprolol tartrate 25 mg tablet 25 mg PO BID #180 tab s 07/02/24 apixaban 5 mg tablet (Eliquis) See Rx Instructions .[place] 07/03/24 .COMPLEX #180 tabs hydrocodone 5 mg-acetaminophen 325 1 tab PO Q6H PRN pa in #14 tabs 08/10/24 mg tablet methocarbamol 750 mg tablet 750 mg PO Q6H PRN spasms # 20 tabs 08/10/24 naproxen 500 mg tablet (Naprosyn) 500 mg PO BID PRN pa in #20 tabs 08/10/24 Allergies Allergy/AdvReac Type Severity Reaction Status Date / Time Penicillins Allergy ALGY-Anaphy Verified 10/17/23 10:57 laxis Review of Systems 2 Const: Denies: fever(s), chills, body aches or change in appetite ENMT: Denies: throat pain or dental pain Card: Denies: chest pain Resp: Denies: dyspnea GI: Denies: abdominal pain, nausea, vomiting or diarrhea : Denies: dysuria Musc: Reports: back pain; Denies: neck pain Skin/Breast: Denies: rash Neuro: Denies: headache(s) PFSH ED 2 PFSH: Medical History History of cardioversion Atrial flutter, 07/19/2023 COVID-19 vaccine administered 2 primary doses mrna vaccine + booster shot x 1 4 para 4 Hypertension Chronic kidney disease, stage II (mild) follows with Dr. Gavin,, diagnosed based on urinary protein History of smoking quit ~02/09/2021 Atrial flutter (~03/13/21) Atrial flutter with rapid ventricular response Surgical History History of cataract surgery History of hysterectomy History of appendectomy Family History Brother Heart disease details unknown Social History Smoking and tobacco/nicotine status: current some day tobacco/nicotine user Quit status (tobacco/nicotine): has quit using Year quit tobacco: 02/09/2021 Former quit date comment: after several attempts Alcohol intake: current Alcohol intake frequency: few times a month Substance/Drug Use: never Current occupational status: other Details: volunteers at [employer] [place] and 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 Physical Exam 2 Const: COMMON NORMALS: no acute distress, patient oriented x3 and healthy appearing HENMT: COMMON NORMALS: normocephalic and atraumatic HEAD & SCALP: n ormocephalic and atraumatic Eye: COMMON NORMALS: conjunctivae normal CONJUNCTIVA: Yes conjunctivae normal Neck/C-Spine: COMMON NORMALS: full ROM and supple Chest: COMMONS NORMALS: normal inspection of the chest Resp: COMMON NORMALS: normal respiratory effort Cardio: COMMON NORMALS: regular rate RATE: regular rate GI: COMMON NORMALS: Normal to inspection, nondistended, normoactive bowel sounds present, Soft to palpation, non-tender and no masses PALPATION: Yes Soft to palpation Back/Pelvis: OTHER: Tenderness noted over right lower hip no saddle anesthesia Extremity: COMMON NORMALS: normal to inspection and full ROM Neuro: COMMON NORMALS: patient oriented x3, moves all extremities and no focal motor deficits Psych: COMMON NORMALS: mental status grossly normal, Normal thought process present and cooperative THOUGHT PROCESS: Normal thought process present Skin: COMMON NORMALS: no rashes or lesions noted and no wounds GENERAL SKIN EXAM: no rashes or lesions noted Course 2 Vital Signs: Vital signs: Vital Signs Temperature 97.6 F 08/10/24 13:17 Pulse Rate 58 L 08/10/24 13:20 Respiratory Rate 116 H 08/10/24 13:35 Blood Pressure 188/112 08/10/24 13:17 Pulse Oximetry 96 08/10/24 13:35 Oxygen Delivery Me thod Room Air 08/10/24 13:20 MDM - Back Pain/Injury Medical Decision Making Patient presents here with right lower back pain is likely muscular in nature she is point tender right lower hip back imaging here is negative blood works negative as well no signs of kidney stone patient stable for discharge follow-up PCP she has no signs of cord compression. Medical Records I reviewed the patient's medical records. Labs I reviewed the patient's lab results. 08/10/24 13:30 08/10/24 13:30 Radiology Impressions Hip/Pelvis X-Ray 08/10/24 13:22 IMPRESSION: Mild to moderate osteoarthritis. Correlate with history of trauma as above. Laboratory Results WBC 8.28 10^3/uL (3.29-11.43) 08/10/24 13:30 RBC 4.93 10^6/uL (3.85-5.65) 08/10/24 13:30 Hgb 16.20 g/dL (11.27-16.99) 08/10/24 13:30 Hct 50.0 % (36-47) H 08/10/24 13:30 MCV 101.4 fl (85-98) H 08/10/24 13:30 MCH 32.9 pg (27-33) 08/10/24 13:30 MCHC 32.4 g/dL (30-55) 08/10/24 13:30 RDW 13.3 % (12.1-15.1) 08/10/24 13:30 Plt Count 230 10^3/cmm (157-399) 08/10/24 13:30 MPV 8.8 fL (7.4-10.4) 08/10/24 13:30 Neut % (Auto) 61.6 % 08/10/24 13:30 Lymph % (Auto) 24.4 % 08/10/24 13:30 [place] % (Auto) 11.4 % 08/10/24 13:30 Eos % (Auto) 1.2 % 08/10/24 13:30 Baso % (Auto) 1.0 % 08/10/24 13:30 Neut # (Auto) 5.11 10^3/uL (1.8-7.7) 08/10/24 13:30 Lymph # (Auto) 2.0 10^3/uL (0.8-4.8) 08/10/24 13:30 [place] # (Auto) 0.9 10^3/uL (0.2-0.9) 08/10/24 13:30 Eos # (Auto) 0.1 10^3/uL (0.0-0.8) 08/10/24 13:30 Baso # (Auto) 0.1 10^3/uL (0.0-0.1) 08/10/24 13:30 Nucleated RBC % (auto) 0 % 08/10/24 13:30 Nucleated RBCs # 0.0 /100WBC 08/10/24 13:30 Sodium 139 mmol/L (136-145) 08/10/24 13:30 Potassium 4.8 mmol/L (3.5-5.1) 08/10/24 13:30 Chloride 101 mmol/L (98-107) 08/10/24 13:30 Carbon Dioxide 27 mmol/L (22-29) 08/10/24 13:30 Anion Gap 15.8 (5-19) 08/10/24 13:30 BUN 14 mg/dL (8-23) 08/10/24 13:30 Creatinine 0.7 mg/dL (0.5-0.9) 08/10/24 13:30 GFR Calculation Not Reportable 08/10/24 13:30 Glucose 91 mg/dL (65-115) 08/10/24 13:30 Calculated Osmolality 288 mOsm/kg (285-295) 08/10/24 13:30 Calcium 9.3 mg/dL (8.5-10.5) 08/10/24 13:30 Total Bilirubin 0.2 mg/dL (0.15-1.2) 08/10/24 13:30 AST 26 U/L (0-32) 08/10/24 13:30 ALT 28 U/L (0-33) 08/10/24 13:30 Alkaline Phosphatase 55 U/L (35-105) 08/10/24 13:30 Total Protein 7.5 g/dL (6.6-8.7) 08/10/24 13:30 Albumin 4.3 g/dL (3.5-5.2) 08/10/24 13:30 Globulin 3.2 g/dL (1.3-4.6) 08/10/24 13:30 Lipase 36 U/L (13-60) 08/10/24 13:30 Urine Color Yellow (Yellow) 08/10/24 14:00 Urine Appearance Clear (CLEAR) 08/10/24 14:00 Urine pH 5.5 (5-7) 08/10/24 14:00 Ur Specific [place] 1.011 (1.005-1.030) 08/10/24 14:00 Urine Protein Trace (Negative) A 08/10/24 14:00 Urine Glucose (UA) 2+ (Normal) H 08/10/24 14:00 Urine Ketones Negative (Negative) 08/10/24 14:00 Urine Blood Negative (Negative) 08/10/24 14:00 Urine Nitrate Negative (Negative) 08/10/24 14:00 Urine Bilirubin Negative (Negative) 08/10/24 14:00 Urine Urobilinogen 0.2 mg/dL (Negative) 08/10/24 14:00 Ur Leukocyte Esterase Negative (Negative) 08/10/24 14:00 Urine RBC 0-2 /hpf (0-2) 08/10/24 14:00 Urine WBC 0-5 /hpf (0-5) 08/10/24 14:00 Ur Squamous Epith Cells 0-5 /hpf (0-5) 08/10/24 14:00 Amorphous Sediment Not Reportable 08/10/24 14:00 Urine Bacteria None seen /hpf (NONE) 08/10/24 14:00 Hyaline Casts 0-4 /lpf H 08/10/24 14:00 All radiology interpretation(s) finalized by discharge Discharge Plan Discharge Patient Disposition: Home Clinical Impression: Low back pain Condition: Stable Prescriptions: New methocarbamol 750 mg tablet 750 mg PO Q6H PRN (Reason: spasms) Qty: 20 0RF hydrocodone-acetaminophen 5-325 mg tablet 1 tab PO Q6H PRN (Reason: pain) Qty: 14 0RF naproxen [Naprosyn] 500 mg tablet 500 mg PO BID PRN (Reason: pain) Qty: 20 0RF No Action Ozempic 0.25 mg or 0.5 mg (2 mg/3 mL) pen injector 0.25 mg SUBCUT DIRECTED Farxiga 10 mg tablet 10 mg PO DAILY metoprolol tartrate 25 mg tablet 25 mg PO BID Qty: 180 3RF flecainide 50 mg tablet See Rx Instructions .ROUTE .COMPLEX Qty: 180 3RF Dose Instruction: TAKE 1 TABLET BY MOUTH EVERY TWELVE HOURS Rx Instructions: TAKE 1 TABLET BY MOUTH EVERY TWELVE HOURS lisinopril 10 mg tablet 10 mg PO DAILY Qty: 90 3RF Eliquis 5 mg tablet See Rx Instructions .ROUTE .COMPLEX Qty: 180 3RF Dose Instruction: TAKE ONE TABLET BY MOUTH TWICE DAILY at 9 IN THE MORNING and 9 IN THE EVENING Rx Instructions: TAKE ONE TABLET BY MOUTH TWICE DAILY at 9 IN THE MORNING and 9 IN THE EVENING albuterol sulfate [Ventolin HFA] 90 mcg/actuation Hfa Aerosol Inhaler 2 puff inhalation Q4H.RESPIRATORY PRN (Reason: Shortness Of Breath) Qty: 6.7 1RF nitroglycerin 0.4 mg tablet, sublingual 0.4 mg sublingual Q5M PRN (Reason: chest pain) Qty: 25 0RF Rx Instructions: do not exceed 3 doses per episode Discharge Orders: Discharge ED (Routine); Ordered 08/10/24 Ordered By: Tariq Alonso Referrals: Fatou Fitzgerald PA [Primary Care Provider, Physicians Award Clerk] - 4-7 days Discharge Diet: Advance as tolerated Discharge Activity: Resume usual activity Patient Instructions: Back Pain (ED) Print Language: Turkmen Coding Level of Care Code ED Relationship Executive for Mary Ramirez
[2024-08-10] MEDS: methocarbamol 750 mg Tablet 1500 MG PO (13:26)
[2024-08-10] MEDS: ondansetron 2 mg/ML SDV 2 mL 4 MG IVP (13:31)
[2024-08-10] MEDS: ketorolac 30 mg/mL INJ 15 MG IVP (13:34)
[2024-08-10 13:35] VITALS: RESP 116; O2SAT 96
[2024-08-10] MEDS: morphine 4 mg/mL SDV 1 mL IVP (13:35)
[2024-08-10 13:45] LABS: Basophils # 0.1 10^3/uL (0.0-0.1); Eosinophils # 0.1 10^3/uL (0.0-0.8); Eosinophils % 1.2 %; Lymphocytes % 24.4 %; Mean Corpuscular HGB Conc 32.4 g/dL (30-55); Mean Corpuscular Hemoglobin 32.9 pg (27-33); Mean Corpuscular Volume 101.4 fl (85-98); Mean Platelet Volume 8.8 fL (7.4-10.4); Monocytes # 0.9 10^3/uL (0.2-0.9); Monocytes % 11.4 %; Neutrophils # 5.11 10^3/uL (1.8-7.7); Neutrophils % 61.6 %; Nucleated Red Blood Cells % 0 %; Platelet Count 230 10^3/cmm (157-399); Red Blood Count 4.93 10^6/uL (3.85-5.65); Red Cell Distribution Width 13.3 % (12.1-15.1); White Blood Count 8.28 10^3/uL (3.29-11.43)
[2024-08-10 14:09] LABS: Alanine Aminotransferase 28 U/L (0-33); Albumin Level 4.3 g/dL (3.5-5.2); Alkaline Phosphatase 55 U/L (35-105); Anion Gap 15.8 (5-19); Aspartate Amino Transferase 26 U/L (0-32); Blood Urea Nitrogen 14 mg/dL (8-23); Calcium 9.3 mg/dL (8.5-10.5); Carbon Dioxide 27 mmol/L (22-29); Chloride 101 mmol/L (98-107); Creatinine Clr Calc Pharmacy 59.2566; Globulin 3.2 g/dL (1.3-4.6); Glucose 91 mg/dL (65-115); Lipase 36 U/L (13-60); Osmolality Calculated 288 mOsm/kg (285-295); Potassium 4.8 mmol/L (3.5-5.1); Sodium 139 mmol/L (136-145); Total Bilirubin 0.2 mg/dL (0.15-1.2); Total Protein 7.5 g/dL (6.6-8.7)
--- NOTE | 2024-08-10 14:09 | PC.NURSE ---
pt states when at rest pain is much better, but with moving and while trying to wipe herself in the bathroom the pain is a 5.
[2024-08-10 14:23] LABS: Bilirubin Urine Negative (Negative); Blood Urine Negative (Negative); Glucose Urine UA 2+ (Normal); Ketones Urine Negative (Negative); Leukocyte Esterase Urine Negative (Negative); Nitrate Urine Negative (Negative); Protein Urine Trace (Negative); Specific Gravity, Urine 1.011 (1.005-1.030); Urine Appearance Clear (CLEAR); Urine Color Yellow (Yellow); Urobilinogen Urine 0.2 mg/dL (Negative); pH Urine 5.5 (5-7)
[2024-08-10 14:29] LABS: Add Urine Microscopic? YES; Bacteria Urine None Seen /hpf; Hyaline Casts Urine 0-4 /lpf; RBC Urine 0-2 /hpf (0-2); Squamous Epithelial Cell Urine 0-5 /hpf (0-5); WBC Urine 0-5 /hpf (0-5)
[2024-08-10] MEDS: dexamethasone 10 mg/mL INJ IVP (14:30)
[2024-08-10 14:41] VITALS: BP 97/71; PULSE 59; O2SAT 91
== END 2024-08-10 14:42 | disposition home or self-care (01) ==
PROVIDERS: Emergency Provider Emergency Medicine; PCP Physician Assistant
DX: M54.50 Low back pain, unspecified (principal); Z79.01 Long term (current) use of anticoagulants; Z87.891 Personal history of nicotine dependence; I12.9 Hypertensive chronic kidney disease with stage 1 through stage 4 chronic kidney disease, or unspecified chronic kidney disease; N18.2 Chronic kidney disease, stage 2 (mild)
CPT/HCPCS: 73502; 80053; 81001; 83690; 85025; 96374; 96375; 99284; J1100; J1885; J2270; J2405; J9999

== ENCOUNTER 2024-09-09 12:20 | Outpatient (CLI) | payer MEDICARE, SELFPAY ==
--- NOTE | 2024-09-09 12:28 | MM_ITS ---
WS: [id number] BILATERAL 3D TOMOSYNTHESIS DIGITAL SCREENING MAMMOGRAPHY WITH CAD CLINICAL INFORMATION: SCREENING HISTORY: Screening mammogram. No current complaints. COMPARISON: 2020 TECHNIQUE: Bilateral CC and MLO views. FINDINGS: Scattered fibroglandular densities bilaterally. No suspicious focal mass, asymmetry, calcifications, or architectural distortion. No evidence of malignancy. Incidental lucent centered calcification RIGHT breast. MM/MM scr BI tomosynthesis [id number] IMPRESSION: DENSITY: There are scattered areas of fibroglandular density. BI-RADS: 2 - Benign. FOLLOW UP: 1 Year Follow-up Recommend return to annual screening mammography.
== END 2024-09-09 12:21 | disposition home or self-care (01) ==
LOC: RAD 12:23
PROVIDERS: PCP Physician Assistant; Visit Provider Physician Assistant
DX: Z12.31 Encounter for screening mammogram for malignant neoplasm of breast (principal); R92.323 Mammographic fibroglandular density, bilateral breasts; R92.1 Mammographic calcification found on diagnostic imaging of breast
CPT/HCPCS: 77063; 77067

== ENCOUNTER → 2024-10-21 14:04 | Outpatient (BNVA) | payer MEDICARE, SELFPAY | PROVIDERS: PCP Physician Assistant; Visit Provider Internal Medicine | DX: I48.92 Unspecified atrial flutter (principal); Z79.01 Long term (current) use of anticoagulants; R06.09 Other forms of dyspnea; I10 Essential (primary) hypertension; F17.200 Nicotine dependence, unspecified, uncomplicated | CPT/HCPCS: 99214 ==